=== PATIENT | male | born 1990 | race African-American/Black ===

== ENCOUNTER 2017-04-17 21:55 | Inpatient (IN) | payer BC, MEDICAID, OTHER ==
[~2017-04-17] VITALS: Ht 188 cm; Wt 71.0 kg
[~2017-04-17 21:55] MED LIST: RISP1 PO; RISP25P IM
[2017-04-17 23:01] VITALS: BP 124/75; PULSE 73; RESP 18; TEMP 98; O2SAT 100
--- NOTE | 2017-04-18 04:37 | PD ---
HPI Chief Complaint: Psychiatric Symptoms Time Seen by Provider: 04:25 Travel History International Travel<30 days: No Contact w/Intl Traveler<30days: No Traveled to known affect area: No History of Present Illness HPI 26-year-old black male presents emergency department under a [place] act by PD. Patient has a history of schizophrenia and has been noncompliant with his medications. The patient was found harassing people outside [facility]. When please contacted the patient he seemed disorganized and would run out to traffic. The patient is not making any sense. He is brought into the ER for evaluation. The patient here is acutely psychotic. The patient is medicated with Geodon 20 mg IM. PFSH Past Medical History Anxiety: Yes Depression: Yes Diminished Hearing: No Endocrine: No Gastrointestinal Disorders: No Genitourinary: No Headaches: No (See EMR) Implanted Vascular Access Dvce: No Musculoskeletal: No Neurologic: No Psychiatric: Yes (See EMR) Respiratory: No Tetanus Vaccination: Unknown Past Surgical History Surgical History: No Previous Surgery Social History Alcohol Use: No Tobacco Use: No Substance Use: No Allergies-Medications (Allergen,Severity, Reaction): Coded Allergies: No Known Allergies (Unverified Adverse Reaction, Unknown, 04/17/17) Reported Meds & Prescriptions Reported Meds & Active Scripts Active No Active Prescriptions or Reported Medications Review of Systems ROS Limitations: Psychotic Physical Exam Narrative GENERAL: Well-nourished, well-developed patient. SKIN: Warm and dry. HEAD: Normocephalic and atraumatic. EYES: No scleral icterus. No injection or drainage. ENT: No nasal drainage noted. Mucous membranes pink. Airway patent. NECK: Supple, trachea midline. Moves head freely without obvious discomfort. CARDIOVASCULAR: Regular rate and rhythm without murmurs, gallops, or rubs. RESPIRATORY: Breath sounds equal bilaterally. No accessory muscle use. GASTROINTESTINAL: Abdomen soft, non-tender, nondistended. EXTREMITIES: No cyanosis or edema. BACK: Nontender without obvious deformity. No CVA tenderness. NEURO: Patient is alert and oriented to person. no sensorimotor deficits. Nonfocal. Normal speech. PSYCH: Patient is acutely psychotic. He is not making any sense. Data Data Last Documented VS Vital Signs Date Time Temp Pulse Resp B/P (MAP) Pulse Ox O2 Delivery O2 Flow Rate FiO2 04/17/17 23:01 98.0 73 18 124/75 (91) 100 Orders Orders Complete Blood Count With Diff (04/17/17 23:13) Psych Screen (04/17/17 23:13) Thyroid Stimulating Hormone (04/18/17 04:31) Drug Screen, Random Urine (04/18/17 04:31) Alcohol (Ethanol) (04/18/17 04:31) Ziprasidone Inj (Geodon Inj) (04/18/17 04:45) Comprehensive Metabolic Panel (04/18/17 04:31) Labs Laboratory Tests Test 04/18/17 04:25 04/18/17 04:45 White Blood Count 11.4 TH/MM3 Red Blood Count 4.74 MIL/MM3 Hemoglobin 14.3 GM/DL Hematocrit 42.4 % Mean Corpuscular Volume 89.4 FL Mean Corpuscular Hemoglobin 30.2 PG Mean Corpuscular Hemoglobin Concent 33.8 % Red Cell Distribution Width 12.8 % Platelet Count 208 TH/MM3 Mean Platelet Volume 9.0 FL Neutrophils (%) (Auto) 60.2 % Lymphocytes (%) (Auto) 30.8 % Monocytes (%) (Auto) 7.1 % Eosinophils (%) (Auto) 1.2 % Basophils (%) (Auto) 0.7 % Neutrophils # (Auto) 6.8 TH/MM3 Lymphocytes # (Auto) 3.5 TH/MM3 Monocytes # (Auto) 0.8 TH/MM3 Eosinophils # (Auto) 0.1 TH/MM3 Basophils # (Auto) 0.1 TH/MM3 CBC Comment DIFF FINAL Differential Comment Blood Urea Nitrogen 13 MG/DL Creatinine 0.97 MG/DL Random Glucose 83 MG/DL Total Protein 8.4 GM/DL Albumin 4.5 GM/DL Calcium Level 8.9 MG/DL Alkaline Phosphatase 59 U/L Aspartate Amino Transf (AST/SGOT) 20 U/L Alanine Aminotransferase (ALT/SGPT) 45 U/L Total Bilirubin 0.4 MG/DL Sodium Level 139 MEQ/L Potassium Level 3.3 MEQ/L Chloride Level 104 MEQ/L Carbon Dioxide Level 28.0 MEQ/L Anion Gap 7 MEQ/L Estimat Glomerular Filtration Rate 112 ML/MIN Thyroid Stimulating Hormone 3rd Gen 1.380 uIU/ML Ethyl Alcohol Level LESS THAN 3 MG/DL Urine Opiates Screen NEG Urine Barbiturates Screen NEG Urine Amphetamines Screen NEG Urine Benzodiazepines Screen NEG Urine Cocaine Screen NEG Urine Cannabinoids Screen POS MDM Medical Decision Making Medical Screen Exam Complete: Yes Emergency Medical Condition: Yes Medical Record Reviewed: Yes Interpretation(s) Laboratory Tests Test 04/18/17 04:25 04/18/17 04:45 White Blood Count 11.4 TH/MM3 Red Blood Count 4.74 MIL/MM3 Hemoglobin 14.3 GM/DL Hematocrit 42.4 % Mean Corpuscular Volume 89.4 FL Mean Corpuscular Hemoglobin 30.2 PG Mean Corpuscular Hemoglobin Concent 33.8 % Red Cell Distribution Width 12.8 % Platelet Count 208 TH/MM3 Mean Platelet Volume 9.0 FL Neutrophils (%) (Auto) 60.2 % Lymphocytes (%) (Auto) 30.8 % Monocytes (%) (Auto) 7.1 % Eosinophils (%) (Auto) 1.2 % Basophils (%) (Auto) 0.7 % Neutrophils # (Auto) 6.8 TH/MM3 Lymphocytes # (Auto) 3.5 TH/MM3 Monocytes # (Auto) 0.8 TH/MM3 Eosinophils # (Auto) 0.1 TH/MM3 Basophils # (Auto) 0.1 TH/MM3 CBC Comment DIFF FINAL Differential Comment Blood Urea Nitrogen 13 MG/DL Creatinine 0.97 MG/DL Random Glucose 83 MG/DL Total Protein 8.4 GM/DL Albumin 4.5 GM/DL Calcium Level 8.9 MG/DL Alkaline Phosphatase 59 U/L Aspartate Amino Transf (AST/SGOT) 20 U/L Alanine Aminotransferase (ALT/SGPT) 45 U/L Total Bilirubin 0.4 MG/DL Sodium Level 139 MEQ/L Potassium Level 3.3 MEQ/L Chloride Level 104 MEQ/L Carbon Dioxide Level 28.0 MEQ/L Anion Gap 7 MEQ/L Estimat Glomerular Filtration Rate 112 ML/MIN Thyroid Stimulating Hormone 3rd Gen 1.380 uIU/ML Ethyl Alcohol Level LESS THAN 3 MG/DL Urine Opiates Screen NEG Urine Barbiturates Screen NEG Urine Amphetamines Screen NEG Urine Benzodiazepines Screen NEG Urine Cocaine Screen NEG Urine Cannabinoids Screen POS Differential Diagnosis MDM: High Differential diagnoses: Schizophrenia, schizoaffective disorder, bipolar, anxiety, depression, adjustment reaction, mood disorder NOS, ODD, depressive disorder NOS, dementia, dementia with agitation, psychosis NOS, substance induced mood disorder, DMDD, Asperger syndrome, infection,electrolyte abnormality, malingering. Narrative Course Patient is disorganized. He is treated with Geodon 20 mg IM. Mental health screening discussed with the patient. Psychiatric screen ordered. This is medical clearance for psychiatric admission, schizophrenia Diagnosis Primary Impression: Medical clearance for psychiatric admission Additional Impression: Schizophrenia Qualified Codes: F20.9 - Schizophrenia, unspecified Scripts No Active Prescriptions or Reported Meds Condition: Wero Vu Apr 18, 2017 04:37
[2017-04-18 04:41] LABS: AUTOMATED NEUTROPHIL # 6.8 TH/MM3 (1.8-7.7); BASOPHIL # 0.1 TH/MM3 (0-0.2); BASOPHIL % 0.7 % (0.0-2.0); EOSINOPHIL # 0.1 TH/MM3 (0-0.4); EOSINOPHIL % 1.2 % (0.0-4.0); HEMATOCRIT 42.4 % (39.0-51.0); HEMOGLOBIN 14.3 GM/DL (13.0-17.0); LYMPH % 30.8 % (9.0-44.0); LYMPHOCYTE # 3.5 TH/MM3 (1.0-4.8); MEAN CELL VOLUME 89.4 FL (80.0-100.0); MEAN CORPUSCULAR HEMOGLOBIN 30.2 PG (27.0-34.0); MEAN CORPUSCULAR HGB CONC 33.8 % (32.0-36.0); MONO % 7.1 % (0.0-8.0); MONOCYTE # 0.8 TH/MM3 (0-0.9); NEUT % 60.2 % (16.0-70.0); PLATELET COUNT 208 TH/MM3 (150-450); RED BLOOD COUNT 4.74 MIL/MM3 (4.50-5.90); RED CELL DISTRIBUTION WIDTH 12.8 % (11.6-17.2); WHITE BLOOD COUNT 11.4 TH/MM3 (4.0-11.0)
[2017-04-18] MEDS ORDERED: ZIPRASIDONE MESYLATE 20 MG VIAL IM ONE (04:45)
[2017-04-18 04:55] LABS: ALBUMIN 4.5 GM/DL (3.4-5.0); ALT (GPT) 45 U/L (12-78); AST (GOT) 20 U/L (15-37); BLOOD UREA NITROGEN 13 MG/DL (7-18); CALCIUM 8.9 MG/DL (8.5-10.1); CHLORIDE 104 MEQ/L (98-107); CREATININE 0.97 MG/DL (0.60-1.30); GLOMERULAR FILTRATION RATE 112 ML/MIN (>89); GLUCOSE,RANDOM 83 MG/DL (74-106); SODIUM (NA) 139 MEQ/L (136-145)
[2017-04-18 05:05] LABS: ALKALINE PHOSPHATASE 59 U/L (45-117); TOTAL BILIRUBIN ADULT 0.4 MG/DL (0.2-1.0); TOTAL PROTEIN 8.4 GM/DL (6.4-8.2)
[2017-04-18 08:07] VITALS: BP 117/71; PULSE 65; RESP 15; TEMP 97.6; O2SAT 100
[2017-04-18 12:30] VITALS: BP 110/69; PULSE 53; RESP 16; O2SAT 99
[2017-04-18 18:12] VITALS: BP 104/63; PULSE 83; RESP 18; O2SAT 100
[2017-04-18 20:45] VITALS: BP 111/69; PULSE 65; RESP 18; TEMP 97; O2SAT 100
[2017-04-18] MEDS ORDERED: MAGNESIUM HYDROXIDE SUSP 30 ML CUP PO PRN (23:45)
[2017-04-18] MEDS ORDERED: ALUMINUM/MAGNESIUM/SIMETH 30 ML CUP PO PRN (23:45)
[2017-04-18] MEDS ORDERED: diphenhydrAMINE HCL 50 MG/ML VIAL - HS PRN IM (23:45)
[2017-04-18] MEDS ORDERED: hydrOXYzine HCL 50 MG TAB PO PRN (23:45)
[2017-04-18] MEDS ORDERED: diphenhydrAMINE HCL 50 MG CAP - HS PRN PO (23:45)
[2017-04-18] MEDS ORDERED: ACETAMINOPHEN 325 MG TAB PO PRN (23:45)
[2017-04-19 05:58] VITALS: BP 123/59; PULSE 80; RESP 18; TEMP 98.7; O2SAT 99
[2017-04-19] MEDS ORDERED: NICOTINE 21 MG/24 HR PATCH T-DERMAL SCH (09:00)
--- NOTE | 2017-04-19 11:43 | HHI.HP ---
Provisional Diagnosis Admission Date Apr 18, 2017 at 20:15 [place] I. 1. Schizophrenia, disorganized type, acute exacerbation 2. Cannabis abuse [place] II. Deferred Certification of Person's Competence To Provide Express and Informed Consent I have personally examined Dannie Baker , a person being served at [facility] on, Apr 19, 2017 11:43. Express and informed consent means consent voluntarily given in writing, by a competent person, after sufficient explanation and disclosure of the subject matter involved to enable the person to make a knowing and willful decision without any element of force, fraud, deceit, duress, or other form of constraint or coercion. This person is 18 years of age or older, is not now known to be incompetent to consent to treatment with a guardian advocate, and does not have a health care surrogate or proxy currently making medical treatment decisions. I have found this person to be one of the following: [] Competent to provide express and informed consent, as defined above, for voluntary admission to this facility and is competent to provide express and informed consent for treatment. He/she has the consistent capacity to make well reasoned, willful, and knowing decisions concerning his or her medical or mental health treatment. The person fully and consistently understands the purpose of the admission for examination/placement and is fully capable of personally exercising all rights [place] [X] Incompetent to provide express and informed consent to voluntary admission, and this is incompetent to provide express and informed consent to treatment. The person must be transferred to involuntary status and a petition for a guardian advocate filed with the Circuit Court. [] Refusing to provide express and informed consent to voluntary admission but is competent to provide express and informed consent for treatment. The person must be discharged or transferred to involuntary status. Form shall be completed within 24 hours of a person's arrival at the receiving facility and filed in the clinical record of each person: 1. Admitted on a voluntary basis 2. Permitted to provide express and informed consent to his/her own treatment 3. Allowed to transfer from involuntary to voluntary status 4. Prior to permitting a person to consent to his or her own treatment after having been previously found incompetent to consent to treatment. History of Present Illness Capacity: Lacks Capacity Psych Chief Complaint: Psychosis HPI Mr. Baker is a 26-year-old male with a history of schizophrenia who resents under a [place] act by law enforcement alleging that he was harassing passersby outside of a bank. Reviewing the electronic medical record, I note the patient was admitted psychiatrically here at [facility] back in 2016 under my care and was started on Risperdal Consta at that time. Patient seen and examined with nurse. Chart reviewed. Case discussed with nursing staff. On my examination today, the patient presents as disheveled, hypoverbal, flat with poor eye contact. He minimizes the circumstances of his presentation here and says "they brought me up here for smoking a joint." He denies interacting with passersby and denies the allegation and the [place] act that he was running into traffic. He denies any suicidal or homicidal ideation but seems unreliable to contract for safety. He denies any audiovisual hallucination but is observed muttering to himself. Mood is "alright" and I can elicit no depressive or hypomanic/manic symptoms. He seems somewhat guarded but denies any ideas of reference, thought insertion or withdrawal or grandiosity. He does not believe that he has any sort of psychiatric issue and is not interested in any psychotropic medication. He apparently has been nonadherent with psychotropic medications for some time. Remainder of the psychiatric ROS is negative. No physical complaints. Past psychiatric history: The patient has a history of schizophrenia. He is not currently under the care of an outpatient psychiatrist. He denies any psychiatric admissions since he was here at [facility]. He denies any history of suicide attempts. Denies any history of violent behavior. Family history: The patient denies any family history of serious mental illness or suicide. Chemical dependency history: The patient admits to occasional use of cannabis. He denies any other substance use. Denies any alcohol use or synthetic drug use. Social history: The patient lives with his mother. He has an 11th grade education. He collects [employer]. Mother may be his payee, it is not clear. He is single. He has a daughter who resides with daughter's mother. He denies any legal troubles. He denies any history. He denies any access to guns or firearms. He denies any pentecostal or spiritual beliefs. He denies any history of abuse or neglect. With the patient's permission, I endeavor to obtain collateral information from his mother at number provided by patient [phone]. This number keeps wringing and no one picks up. Patient notes that the number listed in the EMR is out of date. Review of Systems ROS Limitations: Psychotic, Poor Historian Except as stated in HPI: all other systems reviewed are Neg Past Family Social History Coded Allergies: No Known Allergies (Unverified Allergy, Unknown, 04/18/17) Past Medical History Patient denies any PMH. No Active Prescriptions or Reported Meds Current Medications Medications (Trade) Dose Ordered Sig/Gee Route Start Time Stop Time Status Last Admin (Atarax) 50 mg Q6H PRN PO 04/18/17 23:45 (Benadryl) 50 mg HS PRN PO 04/18/17 23:45 (Benadryl Inj) 50 mg HS PRN IM 04/18/17 23:45 (Tylenol) 650 mg Q4H PRN PO 04/18/17 23:45 (Milk Of Magnesia Liq) 30 ml DAILY PRN PO 04/18/17 23:45 (Mag-Al Plus Susp Liq) 30 ml Q6H PRN PO 04/18/17 23:45 (Habitrol 21 Mg Patch.24 Hr) 1 patch DAILY T-DERMAL 04/19/17 09:00 Miscellaneous Information 1 HS T-DERMAL 04/19/17 21:00 Patient's Strengths (min. 2) In a monitored setting. Verbally fluent. Physical Exam Physical examination completed by ED provider. On my examination today, the patient appears to be in no acute physical distress. No motor abnormalities noted. Labs and vitals reviewed: Vital Signs Vital Signs Date Time Temp Pulse Resp B/P (MAP) Pulse Ox O2 Delivery O2 Flow Rate FiO2 04/19/17 05:58 98.7 80 18 123/59 (80) 99 04/18/17 18:12 Room Air Lab Results Item Value Date Time White Blood Count 11.4 TH/MM3 H 04/18/17424 Hemoglobin 14.3 GM/DL 04/18/17424 Platelet Count 208 TH/MM3 04/18/17 042 Sodium Level 139 MEQ/L 04/18/17 042 Potassium Level 3.3 MEQ/L L 04/18/17 042 Chloride Level 104 MEQ/L 04/18/17 042 Carbon Dioxide Level 28.0 MEQ/L 04/18/17424 Blood Urea Nitrogen 13 MG/DL 04/18/17424 Creatinine 0.97 MG/DL 04/18/17424 Estimat Glomerular Filtration Rate 112 ML/MIN 04/18/17424 Aspartate Amino Transf (AST/SGOT) 20 U/L 04/18/17424 Alanine Aminotransferase (ALT/SGPT) 45 U/L 04/18/17424 Alkaline Phosphatase 59 U/L 04/18/17424 Thyroid Stimulating Hormone 3rd Gen 1.380 uIU/ML 04/18/17424 Urine Cannabinoids Screen POS H 04/18/17444 Ethyl Alcohol Level LESS THAN 3 MG/DL 04/18/17424 Mild leukocytosis noted without any signs or symptoms of infection. Hypokalemia noted, and I have ordered potassium repletion. Mental Status Examination Appearance: Disheveled Consciousness: Alert Orientation: Person, Place (at least) Motor Activity: Normal gait Speech: Hesitant, Slow Language: Adequate Fund of Knowledge: Adequate Attention and Concentration: Easily Distracted Memory: Unremarkable Mood: Other ("all right") Affect: Flat Thought Process & Associations: Other (slowed) Thought Content: Other (some poverty of thought) Hallucination Type: Auditory (muttering to himself) Delusion Type: Other (somewhat guarded) Suicidal Ideation: No (unreliable to contract for safety) Suicidal Plan: No Suicidal Intention: No Homicidal Ideation: No Homicidal Plan: No Homicidal Intention: No Insight: Poor Judgment: Poor Assessment & Plan Problem List: (1) Schizophrenia ICD Codes: F20.9 - Schizophrenia, unspecified Status: Acute (2) Cannabis abuse ICD Codes: F12.10 - Cannabis abuse, uncomplicated Assessment & Plan 26-year-old male with psychiatric history as detailed above presently admitted to the inpatient psychiatric unit under a [place] act. On my examination today, the patient presents as guarded, internally preoccupied and disheveled. He reports that he has been nonadherent with psychotropic medications. I am concerned that he is experiencing an exacerbation of disorganized schizophrenia and may have a significant self-care deficit in a less restrictive setting. I will plan to admit patient to the inpatient psychiatric unit for safety, observation and stabilization. Admit inpatient. Involuntary status. I have completed first opinion. Consult for second opinion. Request healthcare surrogate and guardian advocate. I was unable to reach the patient's mother and have no other healthcare surrogate available at this time and so psychotropic medications are on hold. Once we have made contact with patient's mother or other suitable healthcare surrogate, plan to start patient back on an antipsychotic, probably one with an available long-acting injectable. Check EKG for QTC. Replete potassium. Check a BMP and magnesium in the morning. Check a CBC in the morning to follow-up leukocytosis. Vitals every shift. Counselor to see. Collateral information. Disposition planning. Estimated length of stay: 5-7 days. Discharge Planning Pending psychiatric stabilization Request HC Surrog/Guard Advoc?: Yes Problem Qualifiers (1) Schizophrenia: Qualified Codes: F20.1 - Disorganized schizophrenia Yung Pederson MD Apr 19, 2017 11:43
[2017-04-19] MEDS ORDERED: POTASSIUM CHLORIDE 10 MEQ CONTROLLED RELEASE TAB PO ONE (12:00)
[2017-04-19] MEDS ORDERED: NICOTINE 21 MG/24 HR PATCH T-DERMAL PRN (12:15)
[2017-04-19 18:01] VITALS: BP 107/60; PULSE 72; RESP 18; TEMP 97; O2SAT 98
[2017-04-19] MEDS: REMOVE OLD NICOTINE PATCH T-DERMAL SCH (21:00)
[2017-04-20 05:54] VITALS: BP 114/69; PULSE 80; RESP 17; TEMP 98.6; O2SAT 99
[2017-04-20 08:28] LABS: AUTOMATED NEUTROPHIL # 4.3 TH/MM3 (1.8-7.7); BASOPHIL # 0.1 TH/MM3 (0-0.2); BASOPHIL % 0.9 % (0.0-2.0); EOSINOPHIL # 0.2 TH/MM3 (0-0.4); EOSINOPHIL % 2.1 % (0.0-4.0); HEMATOCRIT 43.8 % (39.0-51.0); HEMOGLOBIN 14.8 GM/DL (13.0-17.0); LYMPH % 33.1 % (9.0-44.0); LYMPHOCYTE # 2.6 TH/MM3 (1.0-4.8); MEAN CELL VOLUME 88.7 FL (80.0-100.0); MEAN CORPUSCULAR HEMOGLOBIN 29.9 PG (27.0-34.0); MEAN CORPUSCULAR HGB CONC 33.8 % (32.0-36.0); MEAN PLATELET VOLUME 9.1 FL (7.0-11.0); MONO % 8.1 % (0.0-8.0); MONOCYTE # 0.6 TH/MM3 (0-0.9); NEUT % 55.8 % (16.0-70.0); PLATELET COUNT 205 TH/MM3 (150-450); RED BLOOD COUNT 4.94 MIL/MM3 (4.50-5.90); RED CELL DISTRIBUTION WIDTH 12.8 % (11.6-17.2); WHITE BLOOD COUNT 7.7 TH/MM3 (4.0-11.0)
[2017-04-20 08:54] LABS: BICARBONATE 27.9 MEQ/L (21.0-32.0); CALCIUM 9.8 MG/DL (8.5-10.1); CREATININE 1.06 MG/DL (0.60-1.30); MAGNESIUM 1.8 MG/DL (1.5-2.5)
--- NOTE | 2017-04-20 09:11 | HHI.PYPN ---
Subjective Chief Complaint: Psychosis Remarks Patient seen and examined. Chart reviewed. Case discussed with nursing staff. Case discussed in treatment team. No behavioral issues overnight per nursing staff although the patient keeps to himself. On my examination today, the patient exhibits poor eye contact and remains fairly disheveled. He is wringing his hands and appears somewhat anxious. He denies any SI or HI. Denies any AVH but appears internally stimulated. He says that he is enjoying the food on the inpatient unit. No physical complaints. Does not think that he needs any psychotropic medications. I once again tried to reach patient's mother at the number in the EMR and at the number provided by the patient himself. Both of these numbers kept ringing with no opportunity to leave a voicemail. Patient reports that there is no one else who we could call to act as healthcare surrogate or for collateral information. Review of Systems ROS Limitations: Psychotic, Poor Historian Except as stated in HPI: all other systems reviewed are Neg Mental Status Examination Appearance: Disheveled Consciousness: Alert Orientation: Person, Place Motor Activity: Normal gait Speech: Hesitant, Slow Language: Adequate Fund of Knowledge: Adequate Attention and Concentration: Adequate Memory: Unremarkable Mood: Other (calm) Affect: Flat Thought Process & Associations: Other (remains a little slowed) Thought Content: Other (some poverty of thought) Hallucination Type: Other (somewhat internally stimulated) Delusion Type: Other (remains a little guarded) Suicidal Ideation: No Suicidal Plan: No Suicidal Intention: No Homicidal Ideation: No Homicidal Plan: No Homicidal Intention: No Insight: Poor Judgment: Poor Results Labs Test 04/20/17 07:35 White Blood Count 7.7 TH/MM3 Red Blood Count 4.94 MIL/MM3 Hemoglobin 14.8 GM/DL Hematocrit 43.8 % Mean Corpuscular Volume 88.7 FL Mean Corpuscular Hemoglobin 29.9 PG Mean Corpuscular Hemoglobin Concent 33.8 % Red Cell Distribution Width 12.8 % Platelet Count 205 TH/MM3 Mean Platelet Volume 9.1 FL Neutrophils (%) (Auto) 55.8 % Lymphocytes (%) (Auto) 33.1 % Monocytes (%) (Auto) 8.1 % Eosinophils (%) (Auto) 2.1 % Basophils (%) (Auto) 0.9 % Neutrophils # (Auto) 4.3 TH/MM3 Lymphocytes # (Auto) 2.6 TH/MM3 Monocytes # (Auto) 0.6 TH/MM3 Eosinophils # (Auto) 0.2 TH/MM3 Basophils # (Auto) 0.1 TH/MM3 CBC Comment DIFF FINAL Differential Comment Blood Urea Nitrogen 12 MG/DL Creatinine 1.06 MG/DL Random Glucose 78 MG/DL Calcium Level 9.8 MG/DL Magnesium Level 1.8 MG/DL Sodium Level 139 MEQ/L Potassium Level 4.1 MEQ/L Chloride Level 103 MEQ/L Carbon Dioxide Level 27.9 MEQ/L Anion Gap 8 MEQ/L Estimat Glomerular Filtration Rate 101 ML/MIN Labs reviewed. Leukocytosis and hypokalemia resolved. Vitals/IOs Vital Signs Date Time Temp Pulse Resp B/P (MAP) Pulse Ox O2 Delivery O2 Flow Rate FiO2 04/20/17 05:54 98.6 80 17 114/69 (84) 99 04/18/17 18:12 Room Air Assessment & Plan Problem List: (1) Schizophrenia ICD Codes: F20.9 - Schizophrenia, unspecified Status: Acute (2) Cannabis abuse ICD Codes: F12.10 - Cannabis abuse, uncomplicated Assessment & Plan Psychotropic medications remain on hold for lack of consent. Patient would likely benefit from an antipsychotic medication. Continue to monitor on the inpatient unit. Continue other care as ordered. Justification for Cont. Inpt. Risk for decompensation in less restrictive environment. Discharge Planning To be determined Request HC Surrog/Guard Advoc?: Yes Problem Qualifiers (1) Schizophrenia: Qualified Codes: F20.1 - Disorganized schizophrenia Yung Pederson MD Apr 20, 2017 09:11
--- NOTE | 2017-04-20 10:54 | PD.PSY.CON ---
Provisional Diagnosis Admission Date Apr 18, 2017 at 20:15 Randolph I. 1. Schizophrenia, disorganized type, acute exacerbation 2. Cannabis abuse Randolph II. Deferred History of Present Illness Service Psychiatry Consult Requested By Dr. Pederson Reason for Consult Second opinion Primary Care Physician Unknown HPI Mr. Baker is a 26-year-old male with a history of schizophrenia who resents under a [place] act by law enforcement alleging that he was harassing passersby outside of a bank. Reviewing the electronic medical record, I note the patient was admitted psychiatrically here at [facility] back in 2016 under my care and was started on Risperdal Consta at that time.Patient seen and examined with nurse. Chart reviewed. Case discussed with nursing staff. On my examination today, the patient presents as disheveled, hypoverbal, flat with poor eye contact. He minimizes the circumstances of his presentation here and says "they brought me up here for smoking a joint." He denies interacting with passersby and denies the allegation and the [place] act that he was running into traffic. He denies any suicidal or homicidal ideation but seems unreliable to contract for safety. He denies any audiovisual hallucination but is observed muttering to himself. Mood is "alright" and I can elicit no depressive or hypomanic/manic symptoms. He seems somewhat guarded but denies any ideas of reference, thought insertion or withdrawal or grandiosity. He does not believe that he has any sort of psychiatric issue and is not interested in any psychotropic medication. He apparently has been nonadherent with psychotropic medications for some time. Remainder of the psychiatric ROS is negative. No physical complaints. The patient is a 26-year-old -[place] man, he is domiciled with his mother, single, employed in a [employer], with psychiatric history of schizophrenia, 1 previous psychiatric hospitalization here at [facility], no previous suicide attempts, no establish outpatient care, cannabis use disorder, no significant medical history,who presents under a [place] act by law enforcement alleging that he was harassing passersby outside of a bank. Patient was consulted to me for second opinion. On psychiatric evaluation patient is guarded, superficially cooperative, minimizing his recent actions that brought him to the hospital. Patient states that he does not have any mental illness, he says that he should be discharged from here. He denies suicidal or homicidal ideation, he denies visual and auditory hallucinations. However, the patient states that if he needs to take medication he will do it in order to be discharged as soon as possible. He denies the use of cocaine, heroin, amphetamines, alcohol. He reports daily use of marijuana Review of Systems Constitutional: DENIES: Diaphoretic episodes, Fatigue, Fever, Weight gain, Weight loss, Chills, Dizziness, Change in appetite, Night Sweats Endocrine: DENIES: Heat/cold intolerance, Polydipsia, Polyuria, Polyphagia Eyes: DENIES: Blurred vision, Diplopia, Eye inflammation, Eye pain, Vision loss , Photosensitivity, Double Vision Ears, nose, mouth, throat: DENIES: Tinnitus, Hearing loss, Vertigo, Nasal discharge, Oral lesions, Throat pain, Hoarseness, Ear Pain, Running Nose, Epistaxis, Sinus Pain, Toothache, Odynophagia Respiratory: DENIES: Apneas, Cough, Snoring, Wheezing, Hemoptysis, Sputum production, Shortness of breath Cardiovascular: DENIES: Chest pain, Palpitations, Syncope, Dyspnea on Exertion , PND, Lower Extremity Edema, Orthopnea, Claudication Gastrointestinal: DENIES: Abdominal pain, Black stools, Bloody stools, Constipation, Diarrhea, Nausea, Vomiting, Difficulty Swallowing, Anorexia Genitourinary: DENIES: Sexual dysfunction, Urinary frequency, Urinary incontinence, Urgency, Hematuria, Dysuria, Nocturia, Penile Discharge, Testicular Pain, Testicular Swelling Musculoskeletal: DENIES: Joint pain, Muscle aches, Stiffness, Joint Swelling, Back pain, Neck pain Integumentary: DENIES: Abnormal pigmentation, Nail changes, Pruritus, Rash Hematologic/lymphatic: DENIES: Bruising, Lymphadenopathy Immunologic/allergic: DENIES: Eczema, Urticaria Neurologic: DENIES: Abnormal gait, Headache, Localized weakness, Paresthesias, Seizures, Speech Problems, Tremor, Poor Balance Psychiatric: DENIES: Anxiety, Confusion, Mood changes, Depression, Hallucinations, Agitation, Suicidal Ideation, Homicidal Ideation, Delusions Past Family Social History Coded Allergies: No Known Allergies (Unverified Allergy, Unknown, 04/18/17) No Active Prescriptions or Reported Meds Current Medications Medications (Trade) Dose Ordered Sig/Gee Route Start Time Stop Time Status Last Admin (Atarax) 50 mg Q6H PRN PO 04/18/17 23:45 Future Hold (Benadryl) 50 mg HS PRN PO 04/18/17 23:45 (Benadryl Inj) 50 mg HS PRN IM 04/18/17 23:45 (Tylenol) 650 mg Q4H PRN PO 04/18/17 23:45 (Milk Of Magnesia Liq) 30 ml DAILY PRN PO 04/18/17 23:45 (Mag-Al Plus Susp Liq) 30 ml Q6H PRN PO 04/18/17 23:45 Miscellaneous Information 1 HS T-DERMAL 04/19/17 21:00 (Habitrol 21 Mg Patch.24 Hr) 1 patch DAILY PRN T-DERMAL 04/19/17 12:15 Patient's Strengths (min. 2) In a monitored setting. Verbally fluent. Physical Exam Vital Signs Vital Signs Date Time Temp Pulse Resp B/P (MAP) Pulse Ox O2 Delivery O2 Flow Rate FiO2 04/20/17 05:54 98.6 80 17 114/69 (84) 99 04/18/17 18:12 Room Air Lab Results Test 04/20/17 07:35 White Blood Count 7.7 TH/MM3 Red Blood Count 4.94 MIL/MM3 Hemoglobin 14.8 GM/DL Hematocrit 43.8 % Mean Corpuscular Volume 88.7 FL Mean Corpuscular Hemoglobin 29.9 PG Mean Corpuscular Hemoglobin Concent 33.8 % Red Cell Distribution Width 12.8 % Platelet Count 205 TH/MM3 Mean Platelet Volume 9.1 FL Neutrophils (%) (Auto) 55.8 % Lymphocytes (%) (Auto) 33.1 % Monocytes (%) (Auto) 8.1 % Eosinophils (%) (Auto) 2.1 % Basophils (%) (Auto) 0.9 % Neutrophils # (Auto) 4.3 TH/MM3 Lymphocytes # (Auto) 2.6 TH/MM3 Monocytes # (Auto) 0.6 TH/MM3 Eosinophils # (Auto) 0.2 TH/MM3 Basophils # (Auto) 0.1 TH/MM3 CBC Comment DIFF FINAL Differential Comment Blood Urea Nitrogen 12 MG/DL Creatinine 1.06 MG/DL Random Glucose 78 MG/DL Calcium Level 9.8 MG/DL Magnesium Level 1.8 MG/DL Sodium Level 139 MEQ/L Potassium Level 4.1 MEQ/L Chloride Level 103 MEQ/L Carbon Dioxide Level 27.9 MEQ/L Anion Gap 8 MEQ/L Estimat Glomerular Filtration Rate 101 ML/MIN Mental Status Examination Appearance: Disheveled Consciousness: Alert Orientation: Person, Place (at least) Motor Activity: Normal gait Speech: Hesitant, Slow Language: Adequate Fund of Knowledge: Adequate Attention and Concentration: Easily Distracted Memory: Unremarkable Mood: Other ("all right") Affect: Flat Thought Process & Associations: Other (slowed) Thought Content: Other (some poverty of thought) Hallucination Type: Auditory (muttering to himself) Delusion Type: Other (somewhat guarded) Suicidal Ideation: No (unreliable to contract for safety) Suicidal Plan: No Suicidal Intention: No Homicidal Ideation: No Homicidal Plan: No Homicidal Intention: No Insight: Poor Judgment: Poor Assessment & Plan Problem List: (1) Schizophrenia ICD Codes: F20.9 - Schizophrenia, unspecified Status: Acute (2) Cannabis abuse ICD Codes: F12.10 - Cannabis abuse, uncomplicated Assessment & Plan: I have seen and examined this patient, reviewed documentation, I agree and concur with Dr. Pederson's assessment and plan. Consult appreciated Assessment & Plan Estimated LOS: days Request HC Surrog/Guard Advoc?: Yes Problem Qualifiers (1) Schizophrenia: Qualified Codes: F20.1 - Disorganized schizophrenia Yoni Magana MD Apr 20, 2017 10:54
--- NOTE | 2017-04-20 11:12 | EKG ---
Date Performed: 04/19/2017 Time Performed: 13:33:51 PTAGE: 26 years EKG: Sinus rhythm INCOMPLETE RIGHT BUNDLE BRANCH BLOCK BORDERLINE ECG NO PREVIOUS TRACING DOCTOR: Saad Campa Interpretating Date/Time 04/20/2017 11:08:09
[2017-04-20 18:13] VITALS: BP 119/56; PULSE 66; RESP 18; TEMP 98.5; O2SAT 98
[2017-04-20] MEDS: REMOVE OLD NICOTINE PATCH T-DERMAL SCH (20:33)
[2017-04-21 06:13] VITALS: BP 108/57; PULSE 80; RESP 17; TEMP 98.3; O2SAT 100
--- NOTE | 2017-04-21 15:44 | HHI.PYPN ---
Subjective Chief Complaint: Psychosis Remarks Patient was seen and case discussed with nursing. Patient is guarded, defensive , disheveled, not cooperative. After the first question. Patient refuses the interview and starts taunting me from a distance. No outbursts Mental Status Examination Appearance: Disheveled Consciousness: Alert Orientation: Person, Place Motor Activity: Normal gait Speech: Hesitant, Slow Language: Adequate Fund of Knowledge: Adequate Attention and Concentration: Adequate Memory: Unremarkable Mood: Angry, Oppositional, Other (calm) Affect: Blunt Thought Process & Associations: Other (remains a little slowed) Thought Content: Other (some poverty of thought) Hallucination Type: Other (somewhat internally stimulated) Delusion Type: Other (remains a little guarded) Suicidal Ideation: No Suicidal Plan: No Suicidal Intention: No Homicidal Ideation: No Homicidal Plan: No Homicidal Intention: No Insight: Poor Judgment: Poor Results Vitals/IOs Vital Signs Date Time Temp Pulse Resp B/P (MAP) Pulse Ox O2 Delivery O2 Flow Rate FiO2 04/21/17 06:13 98.3 80 17 108/57 (74) 100 04/18/17 18:12 Room Air Assessment & Plan Problem List: (1) Schizophrenia ICD Codes: F20.9 - Schizophrenia, unspecified Status: Acute (2) Cannabis abuse ICD Codes: F12.10 - Cannabis abuse, uncomplicated Assessment & Plan Continue current treatment plan Justification for Cont. Inpt. Patient will decompensate in a less restrictive setting Request HC Surrog/Guard Advoc?: Yes Problem Qualifiers (1) Schizophrenia: Qualified Codes: F20.1 - Disorganized schizophrenia Sascha Enrique DO Apr 21, 2017 15:44
[2017-04-21 17:32] VITALS: BP 113/67; PULSE 58; RESP 17; TEMP 97.4; O2SAT 99
[2017-04-21] MEDS: REMOVE OLD NICOTINE PATCH T-DERMAL SCH (20:01)
[2017-04-22 06:03] VITALS: BP 114/65; PULSE 79; RESP 17; TEMP 99.2; O2SAT 100
--- NOTE | 2017-04-22 11:33 | HHI.PYPN ---
Subjective Chief Complaint: Psychosis Remarks Patient was seen and case discussed with nursing. Patient remains oppositional with the interview. Per nursing he would speak to the nurse for couple minutes. However after the first question he starts getting annoyed and using street slang refusing to answer anymore questions. Not on any medications Mental Status Examination Appearance: Disheveled Consciousness: Alert Orientation: Person, Place Motor Activity: Normal gait Speech: Hesitant, Slow Language: Adequate Fund of Knowledge: Adequate Attention and Concentration: Adequate Memory: Unremarkable Mood: Angry, Oppositional, Other (calm) Affect: Blunt Thought Process & Associations: Other (remains a little slowed) Thought Content: Other (some poverty of thought) Hallucination Type: Other (somewhat internally stimulated) Delusion Type: Other (remains a little guarded) Suicidal Ideation: No Suicidal Plan: No Suicidal Intention: No Homicidal Ideation: No Homicidal Plan: No Homicidal Intention: No Insight: Poor Judgment: Poor Results Vitals/IOs Vital Signs Date Time Temp Pulse Resp B/P (MAP) Pulse Ox O2 Delivery O2 Flow Rate FiO2 04/22/17 06:03 99.2 79 17 114/65 (81) 100 04/18/17 18:12 Room Air Assessment & Plan Problem List: (1) Schizophrenia ICD Codes: F20.9 - Schizophrenia, unspecified Status: Acute (2) Cannabis abuse ICD Codes: F12.10 - Cannabis abuse, uncomplicated Assessment & Plan Continue current treatment plan Justification for Cont. Inpt. Patient will decompensate in a less restrictive setting Request HC Surrog/Guard Advoc?: Yes Problem Qualifiers (1) Schizophrenia: Qualified Codes: F20.1 - Disorganized schizophrenia Sascha Enrique DO Apr 22, 2017 11:33
[2017-04-22 16:58] VITALS: BP 113/64; PULSE 62; RESP 18; TEMP 97.1; O2SAT 100
[2017-04-22] MEDS: REMOVE OLD NICOTINE PATCH T-DERMAL SCH (21:00)
[2017-04-23 06:03] VITALS: BP 116/59; PULSE 73; RESP 18; TEMP 98.7
--- NOTE | 2017-04-23 10:44 | HHI.PYPN ---
Subjective Chief Complaint: Psychosis Remarks Patient seen and examined. Chart reviewed. Case discussed with nursing staff. On my examination today, patient is disheveled. Eye contact is poor. The patient appears internally preoccupied. He admits to feelings of paranoia noting "I ain't been feeling good" about people being out to get him. He is hypoverbal and some thought blocking is noted. No acute physical complaints I was able to reach patient's mother, Ms. Xiong today. She is willing to act as HCS. She feels he has done better when medicated in the past and provides consent for Risperdal. Review of Systems ROS Limitations: Psychotic, Poor Historian Except as stated in HPI: all other systems reviewed are Neg Mental Status Examination Appearance: Disheveled Consciousness: Alert Orientation: Person, Place Motor Activity: Normal gait, Other (no motor abnormalities noted) Speech: Hesitant, Slow Language: Adequate Fund of Knowledge: Adequate Attention and Concentration: Adequate Memory: Unremarkable Mood: Other (calm) Affect: Flat Thought Process & Associations: Circumstantial Thought Content: Thought blocking, Other (some poverty of thought) Hallucination Type: Other (remains internally preoccupied) Delusion Type: Paranoid Suicidal Ideation: No Suicidal Plan: No Suicidal Intention: No Homicidal Ideation: No Homicidal Plan: No Homicidal Intention: No Insight: Poor Judgment: Poor Results Labs labs reviewed. Vitals/IOs Vital Signs Date Time Temp Pulse Resp B/P (MAP) Pulse Ox O2 Delivery O2 Flow Rate FiO2 04/23/17 06:03 98.7 73 18 116/59 (78) 04/22/17 16:58 100 Assessment & Plan Problem List: (1) Schizophrenia ICD Codes: F20.9 - Schizophrenia, unspecified Status: Acute (2) Cannabis abuse ICD Codes: F12.10 - Cannabis abuse, uncomplicated Assessment & Plan Add Risperdal 1mg BID with plans to titrate to effect. To consider CARROLL antipsychotic. Continue to monitor on inpatient unit. Continue other medications and care as ordered. Justification for Cont. Inpt. Medication changes. Impairment in reality construction. High risk for decompensation in less restrictive environment. Discharge Planning Pending psychiatric stabilization. Request HC Surrog/Guard Advoc?: Yes Problem Qualifiers (1) Schizophrenia: Qualified Codes: F20.1 - Disorganized schizophrenia Yung Pederson MD Apr 23, 2017 10:44
[2017-04-23] MEDS ORDERED: LORazepam 2 MG/ML VIAL IM PRN (11:00)
[2017-04-23] MEDS ORDERED: LORazepam 1 MG TAB PO PRN (11:00)
[2017-04-23] MEDS: risperiDONE ODT 1 MG TAB PO SCH ×2 (12:00→20:32)
[2017-04-23 15:06] VITALS: BP 120/60; PULSE 90; RESP 18; TEMP 99; O2SAT 100
[2017-04-23] MEDS: REMOVE OLD NICOTINE PATCH T-DERMAL SCH (19:48)
[2017-04-24 05:52] VITALS: BP 112/61; PULSE 98; RESP 18; TEMP 98.9; O2SAT 99
[2017-04-24] MEDS: risperiDONE ODT 1 MG TAB PO SCH ×2 (08:18→21:00)
--- NOTE | 2017-04-24 10:47 | HHI.PYPN ---
Subjective Chief Complaint: Psychosis Remarks Patient seen and examined with nurse. Chart reviewed. Case discussed with nursing staff. Case discussed in treatment team. On my exam, patient remains somewhat hyperverbal, apathetic and affectively flat. Denies AVH. Denies SI or HI. Denies side effects from medications. No acute physical complaints. Review of Systems ROS Limitations: Psychotic, Poor Historian Except as stated in HPI: all other systems reviewed are Neg Mental Status Examination Appearance: Disheveled (grooming improved somewhat) Consciousness: Alert Orientation: Person, Place Motor Activity: Normal gait, Other (no EPS) Speech: Slow Language: Adequate Fund of Knowledge: Adequate Attention and Concentration: Adequate Memory: Unremarkable Mood: Other (no mood issues) Affect: Flat Thought Process & Associations: Circumstantial Thought Content: Thought blocking, Other (some poverty of thought) Hallucination Type: Other (denies AVH) Delusion Type: None Suicidal Ideation: No Suicidal Plan: No Suicidal Intention: No Homicidal Ideation: No Homicidal Plan: No Homicidal Intention: No Insight: Poor Judgment: Poor Results Labs Labs reviewed. No new labs. Vitals/IOs Vital Signs Date Time Temp Pulse Resp B/P (MAP) Pulse Ox O2 Delivery O2 Flow Rate FiO2 04/24/17 05:52 98.9 98 18 112/61 (78) 99 Assessment & Plan Problem List: (1) Schizophrenia ICD Codes: F20.9 - Schizophrenia, unspecified Status: Acute (2) Cannabis abuse ICD Codes: F12.10 - Cannabis abuse, uncomplicated Assessment & Plan Titrate Risperdal to 2 mg twice daily to target psychotic symptoms. Patient does seem to have fairly prominent negative symptoms. Transfer to lower acuity unit. Continue other medications and care as ordered. Justification for Cont. Inpt. Med changes. Risk for decompensation in less restrictive environment. Discharge Planning Pending psychiatric stabilization. Probable discharge later this week. Request HC Surrog/Guard Advoc?: Yes Problem Qualifiers (1) Schizophrenia: Qualified Codes: F20.1 - Disorganized schizophrenia Yung Pederson MD Apr 24, 2017 10:47
[2017-04-24 18:34] VITALS: BP 102/57; PULSE 56; RESP 18; TEMP 97.2; O2SAT 98
[2017-04-24] MEDS: REMOVE OLD NICOTINE PATCH T-DERMAL SCH (21:00)
[2017-04-25 05:50] VITALS: BP 102/57; PULSE 92; RESP 18; TEMP 97.5; O2SAT 99
[2017-04-25] MEDS: risperiDONE ODT 1 MG TAB PO SCH (09:00)
[2017-04-25] MEDS ORDERED: RISP2TAB2 PO ×2 (10:45→12:13)
--- NOTE | 2017-04-25 10:45 | HHI.DS ---
Psychiatry Discharge Summary Inpatient Psychiatric care?: Yes Advance Directive: No Reason Not Provided: NONE Mental Health AdvanceDirective: No Health Care Proxy: No Admission Admission Date Apr 18, 2017 at 20:15 Admission Diagnosis: (1) Schizophrenia ICD Code: F20.9 - Schizophrenia, unspecified (2) Cannabis abuse ICD Code: F12.10 - Cannabis abuse, uncomplicated Brief History Mr. Baker is a 26-year-old male with a history of schizophrenia who resents under a [place] act by law enforcement alleging that he was harassing passersby outside of a bank. Reviewing the electronic medical record, I note the patient was admitted psychiatrically here at [facility] back in 2016 under my care and was started on Risperdal Consta at that time.Patient seen and examined with nurse. Chart reviewed. Case discussed with nursing staff. On my examination today, the patient presents as disheveled, hypoverbal, flat with poor eye contact. He minimizes the circumstances of his presentation here and says "they brought me up here for smoking a joint." He denies interacting with passersby and denies the allegation and the [place] act that he was running into traffic. He denies any suicidal or homicidal ideation but seems unreliable to contract for safety. He denies any audiovisual hallucination but is observed muttering to himself. Mood is "alright" and I can elicit no depressive or hypomanic/manic symptoms. He seems somewhat guarded but denies any ideas of reference, thought insertion or withdrawal or grandiosity. He does not believe that he has any sort of psychiatric issue and is not interested in any psychotropic medication. He apparently has been nonadherent with psychotropic medications for some time. Remainder of the psychiatric ROS is negative. No physical complaints. The patient is a 26-year-old -Citizen [place] man, he is domiciled with his mother, single, employed in a [employer] company, with psychiatric history of schizophrenia, 1 previous psychiatric hospitalization here at [facility], no previous suicide attempts, no establish outpatient care, cannabis use disorder, no significant medical history,who presents under a [place] act by law enforcement alleging that he was harassing passersby outside of a bank. Patient was consulted to me for second opinion. On psychiatric evaluation patient is guarded, superficially cooperative, minimizing his recent actions that brought him to the hospital. Patient states that he does not have any mental illness, he says that he should be discharged from here. He denies suicidal or homicidal ideation, he denies visual and auditory hallucinations. However, the patient states that if he needs to take medication he will do it in order to be discharged as soon as possible. He denies the use of cocaine, heroin, amphetamines, alcohol. He reports daily use of marijuana Tobacco Use In Past 30 Days: No Tobacco Past 30 Days Alcohol Use: Never Hospital Course Patient was admitted to a locked, inpatient psychiatric unit. Appropriate precautions were in place throughout patient's hospital stay. Patient was seen and examined on the unit by psychiatry and also visited by counselor. Psychotropic medications were adjusted. Patient tolerated medication changes well without side effects. Patient had improvement in presenting psychiatric symptomatology, although he did continue to exhibit a fair degree of negative psychotic symptoms. There was no evidence of any suicidality or homicidality on the inpatient unit. No severe self-care deficit. Patient was medication compliant. He was uneventfully transitioned from the higher acuity unit the lower acuity unit and tolerated the milieu of the lower acuity unit well. Collateral information was obtained from the patient's mother. On the day of discharge: Patient seen and examined. Chart reviewed. Case discussed with nursing staff. No behavioral issues noted overnight. Case discussed with counselor. On my examination today, the patient is requesting discharge from the inpatient psychiatric unit today. He denies any suicidal or homicidal ideation, intent or plan on direct questioning and contracts for safety. I can elicit no depressive or hypomanic/manic symptoms. He denies any audiovisual hallucinations. I can elicit no delusional material. Ongoing negative symptoms noted. He denies any side effects from medications. He is agreeable to initiating Risperdal Consta today, and I applications tester he is now capacitated to consent for this medication. Extensive education provided regarding discharge medication regimen. We discuss need for temporary oral supplementation of Risperdal Consta as well as the need for follow-up Risperdal Consta injections. Teach-back utilized to ensure that patient understood instructions. I did endeavor to reach out to the patient's mother on the day of discharge but was unable to reach her. Suicide and violence risk assessment on day of discharge both suggest lower imminent risk, and the patient's level of function is adequate for outpatient care. Patient has maximized benefit from this inpatient psychiatric hospital stay and will be discharged today with psychiatric follow-up as arranged by counselor. Patient also to follow-up with primary care. I have counseled the patient to return to the psychiatric emergency room for any concerning symptoms as part of general safety plan. Results Blood Pressure 102 / 57 Vital Signs Date Time Temp Pulse Resp B/P (MAP) Pulse Ox O2 Delivery O2 Flow Rate FiO2 04/25/17 05:50 97.5 92 18 102/57 (72) 99 Item Value Date Time White Blood Count 7.7 TH/MM3 04/20/17 0735 Hemoglobin 14.8 GM/DL 04/20/17 0735 Platelet Count 205 TH/MM3 04/20/17 0735 Sodium Level 139 MEQ/L 04/20/17 0735 Potassium Level 4.1 MEQ/L 04/20/17 0735 Chloride Level 103 MEQ/L 04/20/17 0735 Carbon Dioxide Level 27.9 MEQ/L 04/20/17 0735 Blood Urea Nitrogen 12 MG/DL 04/20/17 0735 Creatinine 1.06 MG/DL 04/20/17 0735 Aspartate Amino Transf (AST/SGOT) 20 U/L 04/18/17 0425 Alanine Aminotransferase (ALT/SGPT) 45 U/L 04/18/17 0425 Alkaline Phosphatase 59 U/L 04/18/17 0425 Thyroid Stimulating Hormone 3rd Gen 1.380 uIU/ML 04/18/17 0425 Urine Cannabinoids Screen POS H 04/18/17 0445 Ethyl Alcohol Level LESS THAN 3 MG/DL 04/18/17 0425 Summary of Procedures None done Imaging None done Pending results at discharge: No Medications # of Antipsychotic meds at D/C: 1 Approp Antipsych med options 1 - Minimum of three failed multiple trials of monotherapy. 2 - Documented plan to taper to monotherapy due to previous use of multiple meds OR cross-taper in progress at D/C. 3 - Documentation of augmentation of Clozapine. 4 - Justification other than those listed in allowable values 1-3, document here : Discharge Discharge Date: Apr 25, 2017 Discharge Diagnosis: (1) Schizophrenia Diagnosis: Principal (stabilized) ICD Code: F20.9 - Schizophrenia, unspecified Status: Acute (2) Cannabis abuse Diagnosis: Secondary (counseled to quit) ICD Code: F12.10 - Cannabis abuse, uncomplicated Pt Condition on Discharge: Stable Discharge Disposition: Discharge Home Discharge Instructions Diet Instructions: As Tolerated, No Restrictions Activities you can perform: Weight Bearing as Mirna Scheduled Appointment: as per counselor's notes New Medications: Risperidone (Risperidone) 2 Mg Tab 2 MG PO BID for Mental Health for 21 Days, #42 TAB 0 Refills Continue taking oral Risperdal for 21 days and then stop. Be sure to get your next Risperdal Consta injection. Risperidone Inj (Risperdal Consta Inj) 25 Mg/2 Ml Inj 25 MG IM Q14D for Mental Health, #2 VIAL 0 Refills This dose of Risperdal Consta is due on 05/09/17. Discharge Time > 30 minutes Mental Status Examination Appearance: Appropriate Consciousness: Alert Orientation: x4 Motor Activity: Normal gait, Other (No hand tremor, no dystonia, no dyskinesia , no other motor abnormalities noted. ) Speech: Unremarkable Language: Adequate Fund of Knowledge: Adequate Attention and Concentration: Adequate Memory: Unremarkable Mood: Appropriate Affect: Flat Thought Process & Associations: Intact Thought Content: Appropriate Hallucination Type: None Delusion Type: None Suicidal Ideation: No Suicidal Plan: No Suicidal Intention: No Homicidal Ideation: No Homicidal Plan: No Homicidal Intention: No Mental Status Exam Remarks Insight and judgment are fair Discharge/Advance Care Plan Health Problems: (1) Schizophrenia (2) Cannabis abuse Goals to promote your health * To prevent worsening of your condition and complications * To maintain your health at the optimal level Directions to meet your goals Take your medications as prescribed Follow your dietary instruction Follow activity as directed Keep your appointments as scheduled Take your immunizations and boosters as scheduled If your symptoms worsen call your PCP, if no PCP go to Urgent Care Center or Emergency Room For 28/08 questions related to your inpatient stay or results of tests pending at discharge, please contact Dr. Yung Pederson at Smoking is Dangerous to Your Health. Avoid second hand smoking Problem Qualifiers (1) Schizophrenia: Qualified Codes: F20.1 - Disorganized schizophrenia Yung Pederson MD Apr 25, 2017 10:45
[2017-04-25] MEDS ORDERED: RISP25P IM (12:13)
[2017-04-25] MEDS ORDERED: risperiDONE EXT REL INJ 25 MG/2 ML VIAL IM ONE (13:00)
== END 2017-04-25 14:50 | disposition home or self-care (01) | DRG 885 ==
LOC: NEPD 21:55 → NEDA 04-18 20:15 → H270 04-18 20:44 → H260 04-24 15:22
PROVIDERS: ADMIT Psychiatry & Neurology Psychiatry; ATTEND Psychiatry & Neurology Psychiatry
DX: F20.9 Schizophrenia, unspecified (principal); F12.10 Cannabis abuse, uncomplicated
CPT/HCPCS: 80048; 80053; 80307; 83735; 84443; 85025; 93005; 96372; J2794; J3486

== ENCOUNTER 2017-09-21 18:34 | Inpatient (IN) ==
--- NOTE | 2017-09-21 19:13 | ED ---
HPI General Chief complaint: Psychiatric Symptoms Stated complaint: Psych Eval,Dbpd Time Seen by Provider: 09/21/17 19:09 History of Present Illness HPI narrative: 27-year-old male with history of schizophrenia presents under [place] act initially by the Police Department. According to his paperwork the patient was seen continuously walking into traffic. During examination the patient is refusing to provide any history. History is therefore limited. Related Data Home Medications Medication Instructions Recorded Confirmed No Known Home Medications 09/21/17 09/21/17 Allergies Allergy/AdvReac Type Severity Reaction Status Date / Time No Known Allergies Allergy Unknown Uncoded 04/18/17 23:39 Review of Systems ROS Unobtainable ROS Unobtainable: unobtainable due to mental condition PMFSH Medical History Medical History Patient denies significant medical history (Acute) Social History Social History Recent Travel in [facility] within the Last 8 Weeks: No Recent Out of Country Travel within the Last 8 Weeks: No Exam Narrative Exam Narrative: GENERAL: Well-developed well-nourished male in no acute distress SKIN: Warm and dry. Musculoskeletal: Able to ambulate normally. Neurologic: No obvious focal neurologic deficits. PSYCHIATRIC: Agitated and uncooperative Patient refuses remaining aspects of the examination. Course Initial Documented Vital Signs Temperature 99.0 F 09/21/17 18:49 Pulse Rate 95 H 09/21/17 18:49 Respiratory Rate 14 09/21/17 18:49 Blood Pressure 140/66 09/21/17 18:49 Pulse Oximetry 98 09/21/17 18:49 Last Documented Vital Signs Temperature 99.0 F 09/21/17 18:49 Pulse Rate 95 H 09/21/17 18:49 Respiratory Rate 14 09/21/17 18:49 Blood Pressure 140/66 09/21/17 18:49 Pulse Oximetry 98 09/21/17 18:49 Medical Decision Making MDM Narrative Medical decision making narrative: Mental health screening discussed with the patient. Psychiatric screen ordered. Unfortunately the patient's behavior increasingly escalated and he became very uncooperative requiring the use of restraints, he was given Zyprexa and Benadryl. The patient's lab work is been reviewed. She is medically cleared for psychiatric disposition. Medical Screen Exam Complete: Yes Emergency Medical Condition: Yes Differential Diagnosis Differential Diagnosis: Schizophrenia, acute psychosis, substance-induced mood disorder, adjustment reaction, schizoaffective disorder Lab Data Result diagrams: 09/21/17 18:51 09/21/17 18:51 Lab Results 09/21/17 09/21/17 09/21/17 Range/Units 18:51 18:51 22:15 WBC 8.0 (4.0-11.0) th/mm3 RBC 4.49 L (4.50-5.90) mil/mm3 Hgb 13.6 (13.0-17.0) gm/dL Hct 40.0 (39.0-51.0) % MCV 89.1 (80.0-100.0) fL MCH 30.2 (27.0-34.0) pg MCHC 33.9 (32.0-36.0) % RDW 13.0 (11.6-17.2) % Plt Count 173 (150-450) th/mm3 MPV 9.0 (7.0-11.0) fL Neut % (Auto) 57.9 (16.0-70.0) % Lymph % (Auto) 32.5 (9.0-44.0) % [place] % (Auto) 7.3 (0.0-8.0) % Eos % (Auto) 1.5 (0.0-4.0) % Baso % (Auto) 0.8 (0.0-2.0) % Neut # (Auto) 4.6 (1.8-7.7) th/mm3 Lymph # (Auto) 2.6 (1.0-4.8) th/mm3 [place] # (Auto) 0.6 (0.0-0.9) th/mm3 Eos # (Auto) 0.1 (0.0-0.4) th/mm3 Baso # (Auto) 0.1 (0.0-0.2) th/mm3 WBC Differential . Differential Comment Auto diff final Sodium 140 (136-145) meq/L Potassium 3.4 L (3.5-5.1) meq/L Chloride 105 (98-107) meq/L Carbon Dioxide 24.3 (21.0-32.0) meq/L Anion Gap 11 (5-15) meq/L BUN 13 (7-18) mg/dL Creatinine 1.22 (0.60-1.30) mg/dL Estimated GFR 85 L (>89) mL/min Random Glucose 103 (74-106) mg/dL Calcium 8.8 (8.5-10.1) mg/dL Total Bilirubin 0.3 (0.2-1.0) mg/dL AST 11 L (15-37) U/L ALT 16 (12-78) U/L Alkaline Phosphatase 52 (45-117) U/L Total Protein 8.2 (6.4-8.2) g/dL Albumin 4.2 (3.4-5.0) g/dL TSH 1.530 (0.358-3.740) uIU/mL Urine Opiates Screen Neg (Neg) Ur Barbiturates Screen Neg (Neg) Ur Amphetamines Screen Neg (Neg) U Benzodiazepines Scrn Neg (Neg) Urine Cocaine Screen Neg (Neg) U Cannabinoids Screen Pos H (Neg) Serum Alcohol Less than 3 (0-5) mg/dL Discharge Plan Discharge Disposition Patient Disposition: 30 Still Patient Discharge Condition Condition: Stable Discharge Details Diagnosis: Encounter for medical clearance for patient hold Physicians Team ED Provider: Melvi Juarez ED Midlevel Provider: Ulises Barba Primary Care Provider: UNKNOWN, Rxs /Orders / Referrals /Forms Prescriptions: No Action No Known Home Medications RF: 0 Status ED Status: Medically Cleared
[2017-09-21 19:21] LABS: Baso # (Auto) 0.1 th/mm3 (0.0-0.2); Baso % (Auto) 0.8 % (0.0-2.0); Eos # (Auto) 0.1 th/mm3 (0.0-0.4); Eos % (Auto) 1.5 % (0.0-4.0); Hemoglobin 13.6 gm/dL (13.0-17.0); Lymph # (Auto) 2.6 th/mm3 (1.0-4.8); Lymph % (Auto) 32.5 % (9.0-44.0); Mean Corpuscular HGB Conc 33.9 % (32.0-36.0); Mean Corpuscular Hemoglobin 30.2 pg (27.0-34.0); Mean Corpuscular Volume 89.1 fL (80.0-100.0); Mono # (Auto) 0.6 th/mm3 (0.0-0.9); Mono % (Auto) 7.3 % (0.0-8.0); Neut # (Auto) 4.6 th/mm3 (1.8-7.7); Neut % (Auto) 57.9 % (16.0-70.0); Platelet Count 173 th/mm3 (150-450); Red Blood Count 4.49 mil/mm3 (4.50-5.90)
[2017-09-21 19:43] LABS: Alanine Aminotransferase 16 U/L (12-78); Albumin 4.2 g/dL (3.4-5.0); Anion Gap 11 meq/L (5-15); Aspartate Aminotransferase 11 U/L (15-37); Blood Urea Nitrogen 13 mg/dL (7-18); Calcium 8.8 mg/dL (8.5-10.1); Carbon Dioxide 24.3 meq/L (21.0-32.0); Chloride 105 meq/L (98-107); Glomerular Filtration Rate 85 mL/min (>89); Glucose,Random 103 mg/dL (74-106); Potassium 3.4 meq/L (3.5-5.1); Sodium 140 meq/L (136-145)
[2017-09-21 19:53] LABS: Alkaline Phosphatase 52 U/L (45-117); Total Protein 8.2 g/dL (6.4-8.2)
[2017-09-21 22:42] LABS: Amphetamine Screen,Urine Neg (Neg); Barbiturate Screen,Urine Neg (Neg); Cannabinoid Screen,Urine Pos (Neg); Cocaine Screen,Urine Neg (Neg)
[2017-09-21 22:56] LABS: Opiate Screen,Urine Neg (Neg)
[2017-09-22] MEDS ORDERED: LORazepam 1 MG Tablet PO PRN (16:24)
[2017-09-22] MEDS ORDERED: Aluminum/Magnesium/Simethacone Susp 30 ML UDC PO PRN (16:24)
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
[2017-09-22] MEDS: Senna/Docusate Sodium 8.6/50 MG Tablet PO SCH (21:51)
[2017-09-23 08:41] LABS: Anion Gap 5 meq/L (5-15); Blood Urea Nitrogen 13 mg/dL (7-18); Calcium 8.6 mg/dL (8.5-10.1); Carbon Dioxide 29.5 meq/L (21.0-32.0); Chloride 106 meq/L (98-107); Glomerular Filtration Rate Greater Than 89 mL/min (>89); Glucose,Random 73 mg/dL (74-106); Potassium 4.4 meq/L (3.5-5.1); Sodium 140 meq/L (136-145)
[2017-09-23 08:46] LABS: Chol/HDL Ratio 3.53 Ratio; Cholesterol 160 mg/dL (120-200); HDL Cholesterol 45.2 mg/dL (40.0-60.0); LDL Cholesterol,Calculated 93 mg/dL (0-99); Triglycerides 111 mg/dL (42-150)
[2017-09-23] MEDS: Senna/Docusate Sodium 8.6/50 MG Tablet PO SCH ×2 (08:52→20:47)
[2017-09-23] MEDS ORDERED: Aluminum/Magnesium/Simethacone Susp 30 ML UDC PO PRN (10:30)
[2017-09-23] MEDS ORDERED: Haloperidol Inj 5 MG/ML Ampul IM PRN (10:31)
[2017-09-23] MEDS ORDERED: Acetaminophen 325 MG Tablet PO PRN (10:31)
--- NOTE | 2017-09-23 10:39 | P.HPPSY ---
Provisional Diagnosis Admission Date: September 22, 2017 16:44 [place] I.: Schizophrenia chronic paranoid type, marijuana abuse Competence Certification of Person's Competence To Provide Express and Informed Consent I have personally examined Dannie Baker, a person being served at [facility] on, September 23, 2017 1038. Express and informed consent means consent voluntarily given in writing, by a competent person, after sufficient explanation and disclosure of the subject matter involved to enable the person to make a knowing and willful decision without any element of force, fraud, deceit, duress, or other form of constraint or coercion. This person is 18 years of age or older, is not now known to be incompetent to consent to treatment with a guardian advocate, and does not have a health care surrogate or proxy currently making medical treatment decisions. I have found this person to be one of the following: [] Competent to provide express and informed consent, as defined above, for voluntary admission to this facility and is competent to provide express and informed consent for treatment. He/she has the consistent capacity to make well reasoned, willful, and knowing decisions concerning his or her medical or mental health treatment. The person fully and consistently understands the purpose of the admission for examination/placement and is fully capable of personally exercising all rights assured under [place]xxx] Incompetent to provide express and informed consent to voluntary admission , and this is incompetent to provide express and informed consent to treatment. The person must be transferred to involuntary status and a petition for a guardian advocate filed with the Circuit Court. [] Refusing to provide express and informed consent to voluntary admission but is competent to provide express and informed consent for treatment. The person must be discharged or transferred to involuntary status. Form shall be completed within 24 hours of a person's arrival at the receiving facility and filed in the clinical record of each person: 1. Admitted on a voluntary basis 2. Permitted to provide express and informed consent to his/her own treatment 3. Allowed to transfer from involuntary to voluntary status 4. Prior to permitting a person to consent to his or her own treatment after having been previously found incompetent to consent to treatment. History of Present Illness Capacity: Lacks capacity History of Present Illness: Patient is a 27-year-old -[place] male known to us from prior contacts comes here under [place] act by the [place] [employer] dated 2017 at 6:39 PM that document reviewed states quietly Samuel has a substantial likelihood that without care or treatment he will cause serious harm to himself he continuously walks into oncoming traffic on [address] It appears patient was hospitalized here last year under Dr. Yung Javieretz was discharged on Resporal and Risperdal Consta. It appears she has had no follow- up either with medication management or injections. That is refused to be compliant with outpatient treatment he was in his mother's house. Became more paranoid threatening destructive breaking glass turning the television off a wall throwing rocks and rusty through windows besides walking in traffic. Patient did not need emergency treatment orders in the ED. At the present time patient standing in his room on 2700 nurse Bety present throughout session. Patient is tall slender -[place]an male quite vigilant angry distracted with significant thought blocking. He denies mental illness denies need for medication because does not like the way it makes him feel. He said he was upset with his mother which is why he did that instruction. He does deny voices I feel he is really responding to them. At this time he is unwilling to give any further information. I attempted to reach patient's mother at [phone] there is no answer we will try later. The meantime patient does meet criteria for an involuntary psychiatric hospitalization of the [place]arez act. I will do first opinion request second opinion. I feel he does not have capacity thus I will ask for health care surrogate and guardian advocate. With guardian advocate a healthcare surrogate permission we will offer Resporal M tab 2 mg twice daily in anticipation of perhaps giving him the in Burr sustain injection. - Inpatient Certification I certify that the inpatient services were ordered in accordance with Medicare regulations governing the order. This includes certification that hospital inpatient services are reasonable and necessary and in the case of services not specified as inpatient-only under 42 CFR 419.22(n), that they are appropriately provided as inpatient services in accordance to with the 2-midnight benchmark under 43 CFR 412.3(e) I certify that inpatient psychiatric hospital services are medically necessary. Evaluation and treatment and/or diagnostic testing are expected to improve the patient's condition. The patient needs on a daily basis, active treatment furnished directly by or requiring the supervision of inpatient psychiatric facility personnel. Estimated Total Length of Stay (Days): 7 Plans for Post Hospital Care: Home Review of Systems All other systems reviewed negative except as stated in HPI [facility] - History History Provided By: Patient, Medical Record - Medical History Medical History: Medical History (Last Updated 09/21/17 @ 18:52 by Huong Buchanan RN) Patient denies significant medical history - Tobacco History Second Hand Smoke Exposure: No Smoking Status: Unknown if ever smoked Tobacco Type: Cigarettes - Alcohol History How Often Do You Have a Drink Containing Alcohol: Unable to Obtain - Substance Use History Substance History: Unable to Obtain - Travel History Recent Travel in the USA Within the Last 8 Weeks: No Recent Travel Out of the Country Within the Last 8 Weeks: No - Immunization History Tetanus Immunization: <5 Years Hx Influenza Vaccine This Season: No Quality Measures - Psychiatric History Psychological trauma history: Patient refuses to answer Violence risk to others in the last 6 months: Patient quite threatening towards family destruction of much properly also walking in traffic Violence risk to self in the last 6 months: Walking in traffic on the overall - Substance Abuse History Drug or alcohol use in the past 12 months: Patient uses marijuana regularly - Patient Strengths Patient's strengths (minimum of 2): Patient verbal able access healthcare Medications and Allergies Active Medications: Active Medications Acetaminophen (Tylenol) 650 mg PO Q4H PRN PRN Reason: Pain 1-5 or Temp >101F Al Hydrox/Mg Hydrox/Simethicone (Mag-Al Plus Susp Liq) 30 ml PO Q6H PRN PRN Reason: DYSPEPSIA Al Hydrox/Mg Hydrox/Simethicone (Mag-Al Plus Susp Liq) 30 ml PO Q6H PRN PRN Reason: DYSPEPSIA Al Hydroxide/Mg Hydroxide (Milk Of Magnesia Liq) 30 ml PO Q12H PRN PRN Reason: Mild Constipation Al Hydroxide/Mg Hydroxide (Milk Of Magnesia Liq) 30 ml PO Q12H PRN PRN Reason: Mild Constipation Diphenhydramine HCl (Benadryl) 50 mg PO HS PRN PRN Reason: INSOMNIA Haloperidol Lactate (Haldol Inj) 10 mg IM Q6H PRN PRN Reason: SEVERE AGITATION Lorazepam (Ativan) 1 mg PO Q6H PRN PRN Reason: MODERATE TO SEVERE ANXIETY Risperidone (Risperdal M-Tab) 2 mg PO BID [facility] Senna/Docusate Sodium (Melanie-Colace) 1 tab PO BID ELBERT Last Admin: 09/23/17 08:52 Dose: 1 tab Allergies Allergy/AdvReac Type Severity Reaction Status Date / Time No Known Allergies Allergy Unknown Uncoded 04/18/17 23:39 Home Medications Medication Instructions Recorded Confirmed Type No Known Home Medications 09/21/17 09/21/17 History Results - Labs CBC & Chem 7: 09/21/17 18:51 09/23/17 07:40 Labs: Laboratory Results - last 24 hr 09/23/17 07:40 Sodium 140 Potassium 4.4 D Chloride 106 Carbon Dioxide 29.5 Anion Gap 5 BUN 13 Creatinine 1.08 Estimated GFR Greater than 89 Random Glucose 73 L Calcium 8.6 Triglycerides 111 Cholesterol 160 LDL Cholesterol, Calc 93 HDL Cholesterol 45.2 Cholesterol/HDL Ratio 3.53 Exam Vital signs: Vital Signs 09/22/17 18:34 09/23/17 06:14 Temperature 97.5 F L 98.0 F Pulse Rate 52 L 74 Respiratory Rate 18 17 Blood Pressure 108/63 101/57 L Pulse Oximetry 100 99 Intake & Output 09/22/17 09/23/17 09/23/17 18:59 06:59 18:59 Weight 168.1 kg Other: Weight On Admission 168.1 kg Narrative: Patient seen in his room with nurse, patient no acute distress, no complaints of respiratory pain no complaints of chest pain, no complaints of abdominal pain. Patient moving all 4 extremities without difficulty Mental Status Examination Appearance: Appropriate Consciousness: Alert Orientation: Person, Place Motor Activity: Normal gait Speech: Hesitant, Slow, Other (Mumbling) Language: Adequate Fund of Knowledge: Adequate Attention and Concentration: Inadequate Memory: Unremarkable Mood: Angry, Other (Appears withdrawn) Affect: Other (Decreased range and intensity) Thought Process & Associations: Intact Thought Content: Thought blocking, Delusional Hallucination Type: None (Though there is some significant thought blocking noted) Delusion Type: None, Other (Vigilant) Suicidal Ideation: No Suicidal Plan: No Suicidal Intention: No Homicidal Ideation: No Homicidal Plan: No Homicidal Intention: No Insight: Poor Judgment: Poor Assessment and Plan - Assessment (1) Schizophrenia Code(s): F20.9 - Schizophrenia, unspecified Status: Acute - Plan Plan: Estimated LOS: [] days This time patient does meet criteria for involuntary psychiatric hospitalization on the [place] act I will do first opinion request second opinion I feel he does not have capacity we will ask for health care surrogate and guardian advocate. We will offer Risperdal M tab 2 mg twice daily in anticipation of in Burr sustain up. Justification for Continued Inpatient Stay: At this time patient would decompensate a place to a lower level of care Discharge Planning: To be determined Request Healthcare Surrogate/Guardian Advocate?: Yes (1) Schizophrenia Qualifiers: Schizophrenia type: paranoid schizophrenia Qualified Code(s): F20.0 - Paranoid schizophrenia
[2017-09-23] MEDS: risperiDONE 2 MG ODT PO SCH (11:54)
[2017-09-23 13:46] LABS: Hemoglobin A1c 5.6 % (4.3-6.0)
[2017-09-24] MEDS: Senna/Docusate Sodium 8.6/50 MG Tablet PO SCH (08:33)
--- NOTE | 2017-09-24 11:21 | P.CONPSY ---
Provisional Diagnosis Admission Date: September 22, 2017 16:44 [place] I.: 1. Schizophrenia, disorganized type, acute exacerbation 2. Cannabis abuse [place] II.: Deferred History of Present Illness Service: Psychiatry Consult date: 09/24/17 Requesting Physician: Gene Rock Reason for Consult: Second opinion for involuntary psychiatric hospitalization Primary Care Provider: UNKNOWN Family Provider: No Primary Care Physician History of Present Illness: Mr. Baker is a 27-year-old male with a history of schizophrenia and cannabis use issues who presents under a [place] act by [place] [employer] alleging that the patient was continuously walking into traffic on [address]. Patient was seen by Dr. Rock for an H&P. Reviewing the electronic medical record, I note that the patient was psychiatrically admitted most recently under my care in April of this year and was started on Risperdal Consta at that time. Patient seen and examined with counselor and nurse. Chart reviewed. Case discussed with nursing staff who reports that the patient relates that he "trashed his mom's house because he felt like she was rejecting him." On my examination today, the patient presents as somewhat disorganized and internally stimulated, although he denies AVH. The patient tells me that his mother called the police on him because he jumped through a window. He says that he and his mother were arguing about wigs. When I ask him to provide more details about this argument, he tells me "it's just a metaphor. She got mad about it." No luz delusional material. He denies any suicidal or homicidal ideation, although it is unclear whether the patient is reliable to contract for safety. He says that he was running into traffic to get away from the police and that there was no suicidal intent in this behavior. Mood is "straight." I can elicit no severe depressive or hypomanic/manic symptoms. He reports that his sleep and appetite along with his hygiene are fair. Psychiatric interview is somewhat limited as a consequence of the patient's psychiatric symptomatology, and I do suspect that he is not entirely being forthcoming regarding the extent of his psychiatric symptomatology. He has no acute physical complaints. With the patient's permission, I obtained collateral information from mother Anny Xiong [phone]. She is willing to act as HCS. She is unsure if Risperdal was efficacious for patient's condition and does not recall if patient remained improved for long after discharge from the hospital last time. After discussing antipsychotic alternatives (including Abilify, Haldol, Prolixin), Ms. Xiong prefers to resume Risperdal with plan to transition to [facility]. We discuss potential antipsychotic side effects including metabolic side effects and movement disorder side effects such as EPS, TD as well as NMS. We discussed the dosing schedule of the Invega Sustenna. I obtained consent for medications from Ms. Xiong. Past psychiatric history: Patient likely an unreliable historian. He has a history of schizophrenia and cannabis use. He says that he is not presently under the care of a psychiatrist. He says that he stopped taking his psychotropic medications immediately after discharge from the inpatient unit last time. Most recent psychiatric admission was here at [facility]. He denies any history of suicide attempts. Family history: The patient denies any family history of mental illness. Chemical dependency history: The patient reports sporadic use of cannabis. Most recently, he says that he smoked cannabis for his brother's birthday. Social history: The patient resides with his mother. He is single with no children. He has a grade 11 education. He is unsure whether he has any income , such as disability income. He denies any legal history. Denies any access to guns or firearms. Denies any history of trauma. Review of Systems All other systems reviewed negative except as stated in HPI (Limitation: Psychosis) [facility] - History History Provided By: Patient, Medical Record - Medical History Medical History: Medical History (Last Updated 09/21/17 @ 18:52 by Huong Buchanan RN) Patient denies significant medical history - Tobacco History Second Hand Smoke Exposure: No Smoking Status: Unknown if ever smoked Tobacco Type: Cigarettes - Alcohol History How Often Do You Have a Drink Containing Alcohol: Unable to Obtain - Substance Use History Substance History: No History of Abuse - Travel History Recent Travel in the USA Within the Last 8 Weeks: No Recent Travel Out of the Country Within the Last 8 Weeks: No - Immunization History Tetanus Immunization: <5 Years Hx Influenza Vaccine This Season: No Medications and Allergies Active Medications: Active Medications Acetaminophen (Tylenol) 650 mg PO Q4H PRN PRN Reason: Pain 1-5 or Temp >101F Al Hydrox/Mg Hydrox/Simethicone (Mag-Al Plus Susp Liq) 30 ml PO Q6H PRN PRN Reason: DYSPEPSIA Al Hydroxide/Mg Hydroxide (Milk Of Magnesia Liq) 30 ml PO Q12H PRN PRN Reason: Mild Constipation Diphenhydramine HCl (Benadryl) 50 mg PO HS PRN PRN Reason: INSOMNIA Haloperidol Lactate (Haldol Inj) 10 mg IM Q6H PRN PRN Reason: SEVERE AGITATION Lorazepam (Ativan) 1 mg PO Q6H PRN PRN Reason: MODERATE TO SEVERE ANXIETY Risperidone (Risperdal M-Tab) 2 mg PO BID [facility] Last Admin: 09/23/17 11:54 Dose: Not Given Senna/Docusate Sodium (Melanie-Colace) 1 tab PO BID [facility] Last Admin: 09/24/17 08:33 Dose: 1 tab Allergies Allergy/AdvReac Type Severity Reaction Status Date / Time No Known Allergies Allergy Unknown Uncoded 04/18/17 23:39 Home Medications Medication Instructions Recorded Confirmed Type No Known Home Medications 09/21/17 09/21/17 History Exam Vital signs: Vital Signs 09/23/17 17:40 09/24/17 06:00 Pulse Rate 65 64 Respiratory Rate 16 17 Blood Pressure 109/64 112/57 L Pulse Oximetry 100 Intake & Output 09/23/17 09/24/17 09/24/17 18:59 06:59 18:59 Weight 70.9 kg Narrative: Physical exam completed by ED provider. On my examination today, patient appears to be in no acute physical distress. No motor abnormalities noted. Labs and vital signs reviewed: Laboratory Tests 09/21/17 09/21/17 09/21/17 18:51 18:51 22:15 WBC 8.0 Hgb 13.6 Plt Count 173 Sodium Potassium Chloride Carbon Dioxide BUN Creatinine Estimated GFR Random Glucose Hemoglobin A1c AST 11 L ALT 16 Alkaline Phosphatase 52 TSH 1.530 U Cannabinoids Screen Pos H Serum Alcohol Less than 3 09/23/17 09/23/17 07:40 07:40 WBC Hgb Plt Count Sodium 140 Potassium 4.4 D Chloride 106 Carbon Dioxide 29.5 BUN 13 Creatinine 1.08 Estimated GFR Greater than 89 Random Glucose 73 L Hemoglobin A1c 5.6 AST ALT Alkaline Phosphatase TSH U Cannabinoids Screen Serum Alcohol Besides mild hypoglycemia on BMP and toxicological findings, no clinically significant laboratory abnormalities noted. EKG was read as sinus rhythm with a QTC of 383 ms, not prolonged. Mental Status Examination Appearance: Appropriate Consciousness: Alert Orientation: Person, Place (At least) Motor Activity: Normal gait Speech: Hesitant, Slow Language: Other (Somewhat rambling) Fund of Knowledge: Adequate Attention and Concentration: Inadequate Memory: Unremarkable Mood: Other ("Straight") Affect: Blunt Thought Process & Associations: Other (Thought disorder with occasional disorganization present) Thought Content: Thought blocking Hallucination Type: Other (Denies AVH but appears internally stimulated) Delusion Type: None Suicidal Ideation: No Suicidal Plan: No Suicidal Intention: No Homicidal Ideation: No Homicidal Plan: No Homicidal Intention: No Insight: Poor Judgment: Poor Assessment and Plan - Assessment (1) Schizophrenia Code(s): F20.9 - Schizophrenia, unspecified Status: Acute (2) Cannabis abuse Code(s): F12.10 - Cannabis abuse, uncomplicated Status: Acute - Plan Plan: Given the circumstances of the patient's presentation here, and his presentation on my examination today, I concur with Dr. Rock that the patient meets criteria for involuntary psychiatric hospitalization under the [place] act. I have completed the second opinion paperwork. I will be assuming primary care of the case. I note that Dr. Rock has started the patient on Risperdal 2 mg twice daily, and I will continue this dose as the patient is not antipsychotic ranjan and has tolerated Risperdal before. If this agent is efficacious, I will plan for a fairly rapid transition to Invega Sustenna. I will provide Cogentin as needed for EPS, Ativan as needed for anxiety and Benadryl as needed for sleep. Continue to monitor on the inpatient unit. Continue other medications and care as ordered. ELOS: 7-9 days. Justification for Continued Inpatient Stay: Medication changes. Impairment in reality construction. High risk for decompensation in less restrictive environment. Discharge Planning: Pending psychiatric stabilization Request Healthcare Surrogate/Guardian Advocate?: Yes (1) Schizophrenia Qualifiers: Schizophrenia type: disorganized schizophrenia Qualified Code(s): F20.1 - Disorganized schizophrenia
[2017-09-24] MEDS ORDERED: Benztropine Inj 2 MG/2 ML Ampul IM PRN (11:34)
[2017-09-24] MEDS ORDERED: risperiDONE 2 MG ODT PO ONE (12:15)
--- NOTE | 2017-09-24 17:17 | ECG ---
Date Performed: 09/23/2017 Time Performed: 13:13:40 PTAGE: 27 years EKG: Sinus rhythm POSSIBLE RIGHT VENTRICULAR CONDUCTION DELAY BORDERLINE ECG PREVIOUS TRACING : 04/19/2017 13.33 Since the previous tracing, no significant change noted DOCTOR: Shaun Ojeda Interpretating Date/Time 09/24/2017 17:15:39
[2017-09-24] MEDS: risperiDONE 2 MG ODT PO SCH (20:45)
[2017-09-25] MEDS: risperiDONE 2 MG ODT PO SCH (09:06)
--- NOTE | 2017-09-25 12:13 | P.PNPSY ---
Subjective Remarks: Patient seen and examined. Chart reviewed. Case discussed with nursing staff. Patient reportedly medication compliant but remains internally stimulated and guarded. On my examination today, the patient continues to respond to internal stimuli, although he does make an effort to hide this fact. He denies any audiovisual hallucinations. He remains a little bit guarded. He denies any SI or HI. Denies any side effects from medications, nor does he have any evident sedation or side effects from medications. No physical complaints. Vital Signs Temp Pulse Resp BP Pulse Ox 09/25/17 05:45 97.9 F 81 16 110/70 99 09/24/17 17:19 98.2 F 77 17 145/65 H 100 Labs reviewed. No new labs. EKG reviewed. QTc within normal limits. Review of Systems All other systems reviewed negative except as stated in HPI (Limitation: Psychosis) Mental Status Examination Appearance: Appropriate Consciousness: Alert Orientation: Person, Place (At least) Motor Activity: Normal gait, Other (No motor abnormalities noted.) Speech: Hesitant Language: Other (Somewhat rambling) Fund of Knowledge: Adequate Attention and Concentration: Inadequate Memory: Unremarkable Mood: Appropriate Affect: Blunt Thought Process & Associations: Circumstantial Thought Content: Thought blocking Hallucination Type: Other (Remains internally preoccupied) Delusion Type: Other (Guarded) Suicidal Ideation: No Suicidal Plan: No Suicidal Intention: No Homicidal Ideation: No Homicidal Plan: No Homicidal Intention: No Insight: Poor Judgment: Poor Assessment and Plan - Assessment (1) Schizophrenia Code(s): F20.9 - Schizophrenia, unspecified Status: Acute (2) Cannabis abuse Code(s): F12.10 - Cannabis abuse, uncomplicated Status: Acute - Plan Plan: Titrate Risperdal to 3 mg twice daily to target psychotic symptoms. Plan remains for transition to long-acting injectable once we identify efficacious agent. Continue to monitor on the inpatient unit. OT consultation. Continue other medications and care as ordered. Justification for Continued Inpatient Stay: Medication changes. Risk for decompensation in less restrictive environment. Discharge Planning: Pending psychiatric stabilization. Request Healthcare Surrogate/Guardian Advocate?: Yes (1) Schizophrenia Qualifiers: Schizophrenia type: disorganized schizophrenia Qualified Code(s): F20.1 - Disorganized schizophrenia
[2017-09-25] MEDS: risperiDONE 3 MG ODT PO SCH (20:24)
[2017-09-26] MEDS: risperiDONE 3 MG ODT PO SCH ×2 (08:43→20:38)
--- NOTE | 2017-09-26 09:21 | P.PNPSY ---
Subjective Remarks: Patient seen and examined with counselor. Chart reviewed. Case discussed with nursing staff. No behavioral issues noted overnight. On my examination today, the patient displays some poverty of thought. He remains somewhat internally stimulated. He does report that he is sleeping well and denies suicidal or homicidal ideation. He denies side effects from medications. No physical complaints. Vital Signs Temp Pulse Resp BP Pulse Ox 09/26/17 05:57 97.0 F L 82 17 107/53 L 98 09/25/17 18:27 97.9 F 98 H 18 111/59 L 98 Labs reviewed. No new labs. Review of Systems All other systems reviewed negative except as stated in HPI (Limitation: Psychosis) Mental Status Examination Appearance: Appropriate Consciousness: Alert Orientation: Person, Place (At least) Motor Activity: Normal gait, Other (No abnormal motor movements noted) Speech: Unremarkable Language: Adequate Fund of Knowledge: Adequate Attention and Concentration: Other (Fair) Memory: Unremarkable Mood: Appropriate Affect: Blunt Thought Process & Associations: Intact Thought Content: Thought blocking Hallucination Type: Other (Remains somewhat internally stimulated) Delusion Type: None Suicidal Ideation: No Suicidal Plan: No Suicidal Intention: No Homicidal Ideation: No Homicidal Plan: No Homicidal Intention: No Insight: Poor Judgment: Poor Assessment and Plan - Assessment (1) Schizophrenia Code(s): F20.9 - Schizophrenia, unspecified Status: Acute (2) Cannabis abuse Code(s): F12.10 - Cannabis abuse, uncomplicated Status: Acute - Plan Plan: Possibly some early response to Risperdal therapy. Continue to monitor on current Risperdal dose to ensure this agent is efficacious for patient's condition. I have also asked the counselor to have patient's family come in for a visit ideally this evening to provide their insight as to whether the Risperdal is providing adequate antipsychotic effect. Plan remains for transition to long-acting injectable antipsychotic. We will transfer the patient to the lower acuity unit today as behavior seems more appropriate for that unit. Continue other medications and care as ordered. Justification for Continued Inpatient Stay: Impairment in reality construction. Risk for decompensation in less restrictive environment. Discharge Planning: Pending psychiatric stabilization. Request Healthcare Surrogate/Guardian Advocate?: Yes (1) Schizophrenia Qualifiers: Schizophrenia type: disorganized schizophrenia Qualified Code(s): F20.1 - Disorganized schizophrenia
[2017-09-27] MEDS: risperiDONE 3 MG ODT PO SCH (09:19)
--- NOTE | 2017-09-27 10:49 | P.DSPSY ---
Psychiatry Discharge Summary Inpatient Psychiatric care?: Yes Advance Directives: No Mental Health Advance Directive: No Health Care Proxy: No - Admission Admission Date: September 22, 2017 16:44 - Admission Diagnosis (1) Schizophrenia Code(s): F20.9 - Schizophrenia, unspecified (2) Cannabis abuse Code(s): F12.10 - Cannabis abuse, uncomplicated Brief History: Patient is a 27-year-old -[place] male known to us from prior contacts comes here under [place] act by the [place] [employer] dated 2017 at 6:39 PM that document reviewed states quietly Samuel has a substantial likelihood that without care or treatment he will cause serious harm to himself he continuously walks into oncoming traffic on [address] It appears patient was hospitalized here last year under Dr. Yung Javieretz was discharged on Resporal and Risperdal Consta. It appears she has had no follow- up either with medication management or injections. That is refused to be compliant with outpatient treatment he was in his mother's house. Became more paranoid threatening destructive breaking glass turning the television off a wall throwing rocks and rusty through windows besides walking in traffic. Patient did not need emergency treatment orders in the ED. At the present time patient standing in his room on [address] nurse [address] present throughout session. Patient is tall slender -[place] male quite vigilant angry distracted with significant thought blocking. He denies mental illness denies need for medication because does not like the way it makes him feel. He said he was upset with his mother which is why he did that instruction. He does deny voices I feel he is really responding to them. At this time he is unwilling to give any further information. I attempted to reach patient's mother at [phone] there is no answer we will try later. The meantime patient does meet criteria for an involuntary psychiatric hospitalization of the [place] act. I will do first opinion request second opinion. I feel he does not have capacity thus I will ask for health care surrogate and guardian advocate. With guardian advocate a healthcare surrogate permission we will offer Resporal M tab 2 mg twice daily in anticipation of perhaps giving him the in [place] sustain injection. Tobacco Use In Past 30 Days: No How Often Do You Have a Drink Containing Alcohol: Unable to Obtain Hospital Course: Patient was admitted to a locked, inpatient psychiatric unit. Appropriate precautions were in place throughout patient's hospital stay. Patient was seen and examined on the unit by psychiatry and also visited by counselor. Psychotropic medications were adjusted. There was no evidence of any suicidality or homicidality on the unit unit. The patient's case was presented to the [facility] court, and the dump truck operator has ordered the patient's discharge from the inpatient psychiatric unit today per patient's request. I have returned after the [place] act court to meet with the patient on the unit to see if he would be willing to remain voluntarily for further observation and stabilization , but he has declined. He does provide consent for administration of Risperdal Consta prior to discharge after a discussion of the R/B/A, and I have discussed with him the need for temporary supplementation with oral Risperdal as well as the need for follow-up Risperdal Consta injections. I have utilized to the "teach back" method to ensure that the patient has understood my instructions. He has no suicidality or homicidality at time of discharge. He does remain a little bit internally stimulated, but there is no luz paranoia or other delusional material. He has no depressive or hypomanic/manic symptoms. He is tolerating psychotropics well without reported side effects and has no physical complaints. Psychiatric follow-up as arranged by counselor. Patient is also to follow up with primary care. I have counseled the patient to abstain from substances of abuse including cannabis and have counseled him to return to the psychiatric emergency room for any concerning symptoms as part of a general safety plan. - Discharge Discharge Date: 09/27/17 - Discharge Diagnosis (1) Schizophrenia Diagnosis: Principal Code(s): F20.9 - Schizophrenia, unspecified Status: Acute (2) Cannabis abuse Diagnosis: Secondary Code(s): F12.10 - Cannabis abuse, uncomplicated Status: Acute Discharge Disposition: Home - Discharge Instructions Discharge Diet: Regular Diet Activities You Can Perform: Weight Bearing As Tolerat - Discharge Time > 30 minutes Mental Status Examination Appearance: Appropriate Consciousness: Alert Orientation: Person, Place (At least) Motor Activity: Normal gait, Other (No hand tremor, no dystonia, no dyskinesia, no other motor abnormalities noted.) Speech: Unremarkable Language: Adequate Fund of Knowledge: Adequate Attention and Concentration: Other (Fair) Memory: Unremarkable Mood: Appropriate Affect: Blunt Thought Process & Associations: Intact Thought Content: Thought blocking (Decreased versus admission) Hallucination Type: Other (Remains mildly internally stimulated) Delusion Type: None Suicidal Ideation: No Suicidal Plan: No Suicidal Intention: No Homicidal Ideation: No Homicidal Plan: No Homicidal Intention: No Insight: Poor Judgment: Poor Discharge/Advance Care Plan - Results Vital Signs: Last Vital Signs Temp 98.4 F 09/27/17 05:21 Pulse 82 09/27/17 05:21 Resp 18 09/27/17 05:21 BP 123/61 09/27/17 05:21 Pulse Ox 98 09/27/17 05:21 Lab Results: Laboratory Results Hemoglobin A1c 5.6 % (4.3-6.0) 09/23/17 07:40 Triglycerides 111 mg/dL (42-150) 09/23/17 07:40 Cholesterol 160 mg/dL (120-200) 09/23/17 07:40 LDL Cholesterol, Calc 93 mg/dL (0-99) 09/23/17 07:40 HDL Cholesterol 45.2 mg/dL (40.0-60.0) 09/23/17 07:40 TSH 1.530 uIU/mL (0.358-3.740) 09/21/17 18:51 Summary of Procedures: None done Pending Results: None - Medications Number of antipsychotic medications at discharge: 1 (Risperdal PO and Consta) - Discharge Care Plan Goals to Promote Your Health: * To prevent worsening of your condition and complications * To maintain your health at the optimal level Directions to Meet Your Goals: Take your medications as prescribed Follow your dietary instruction Follow activity as directed Keep your appointments as scheduled Take your immunizations and boosters as scheduled If your symptoms worsen call your PCP, if no PCP go to Urgent Care Center or Emergency Room For 28/08 questions related to your inpatient stay or results of tests pending at discharge, please contact Dr. Yung Pederson MD at [phone] Smoking is Dangerous to Your Health. Avoid second hand smoking (1) Schizophrenia Qualifiers: Schizophrenia type: disorganized schizophrenia Qualified Code(s): F20.1 - Disorganized schizophrenia (1) Schizophrenia Qualifiers: Schizophrenia type: disorganized schizophrenia Qualified Code(s): F20.1 - Disorganized schizophrenia
[2017-09-27] MEDS ORDERED: risperiDONE Extended Release Inj 25 MG/2 ML Syringe IM SCH (12:00)
== END 2017-09-27 15:08 | disposition home or self-care (01) ==
LOC: NEPJ 18:34 → H270 09-22 16:44 → H260 09-26 18:07
PROVIDERS: ADMIT Psychiatry & Neurology Psychiatry; ATTEND Psychiatry & Neurology Psychiatry

== ENCOUNTER 2018-01-14 19:23 | Inpatient (IN) ==
--- NOTE | 2018-01-14 19:49 | ED ---
HPI General Stated Complaint: Psych/[facility]PD Time Seen by Provider: 01/14/18 19:28 Source: patient and police Mode of arrival: ambulatory Limitations: other (Patient is psychotic and uncooperative) History of Present Illness HPI Narrative: This is a 27-year-old black male schizophrenic who presents emergency department under [place] act by [employer]. Patient's mother had contacted police advising them that she did not feel safe at home. Her son has not been compliant with his medicines. He has been acting unusual. The patient has not been making any sense. Here the patient is refusing to answer questions. He is uncooperative. There is concerned due to the patient's cooperativeness, and his demeanor that he may be a risk/threat to the medical staff. I feel that it is in the patient's best interest in the best interest of the staff to order violent restraints to assist with his compliance. Patient will be medicated with Geodon 20 mg and Ativan 2 mg IM. Related Data Previous Rx's Medication Instructions Recorded risperidone microspheres 25 mg IM Q14D #1 ea 09/27/17 [Risperdal Consta] Allergies Allergy/AdvReac Type Severity Reaction Status Date / Time No Known Allergies Allergy Verified 11/21/17 11:16 Review of Systems ROS Unobtainable ROS Unobtainable: other (Patient is refusing) [facility] Medical History Medical History Bipolar 1 disorder (Acute) Patient denies significant medical history (Acute) Social History Social History Substance History: Active Abuse Second Hand Smoke Exposure: No Smoking Status: Never smoker Tobacco Type: Cigarettes How Often Do You Have a Drink Containing Alcohol: Never Exam Narrative Exam Narrative: GENERAL: This is a well-nourished, well-developed patient, in no apparent distress. SKIN: No rashes, ecchymoses or lesions. Warm and dry. HEAD: Atraumatic. Normocephalic. EYES: PERRL, EOMI, no discharge or injection. No scleral icterus. NOSE: Nasal turbinates appear normal. THROAT: Mucosa pink and moist. Airway patent. NECK: Trachea midline. supple, moves head freely. LUNGS: Clear to auscultation. CV: Regular in rhythm. ABDOMEN: Soft nontender. EXT: No clubbing cyanosis or edema. Psych: Patient is responding to internal stimuli. He is not making any sense. He is uncooperative. He is refusing to answer questions. Medical Decision Making MDM Narrative Medical decision making narrative: Violent restraints have been ordered. Routine laboratory tests sent for analysis. Patient is medicated with Geodon 20 mg IM and Ativan 2 mg IM. The patient has been medically cleared. The patient is awaiting evaluation by psychiatry. Medical Screen Exam Complete: Yes Emergency Medical Condition: Yes Differential Diagnosis Differential Diagnosis: MDM: High Differential diagnoses: Schizophrenia, schizoaffective disorder, bipolar, anxiety, depression, adjustment reaction, mood disorder NOS, ODD, depressive disorder NOS, dementia, dementia with agitation, psychosis NOS, substance induced mood disorder, DMDD, Asperger syndrome, infection,electrolyte abnormality, malingering. Mental health screening discussed with the patient. Psychiatric screen ordered. Lab Data Result diagrams: 01/14/18 19:50 01/14/18 19:50 Lab Results 01/14/18 01/14/18 Range/Units 19:50 19:50 WBC 11.2 H (4.0-11.0) th/mm3 RBC 4.85 (4.50-5.90) mil/mm3 Hgb 14.2 (13.0-17.0) gm/dL Hct 43.9 (39.0-51.0) % MCV 90.4 (80.0-100.0) fL MCH 29.2 (27.0-34.0) pg MCHC 32.3 (32.0-36.0) % RDW 13.1 (11.6-17.2) % Plt Count 215 (150-450) th/mm3 MPV 9.5 (7.0-11.0) fL Neut % (Auto) 59.7 (16.0-70.0) % Lymph % (Auto) 29.4 (9.0-44.0) % [place] % (Auto) 9.0 H (0.0-8.0) % Eos % (Auto) 1.3 (0.0-4.0) % Baso % (Auto) 0.6 (0.0-2.0) % Neut # (Auto) 6.7 (1.8-7.7) th/mm3 Lymph # (Auto) 3.3 (1.0-4.8) th/mm3 [place] # (Auto) 1.0 H (0.0-0.9) th/mm3 Eos # (Auto) 0.1 (0.0-0.4) th/mm3 Baso # (Auto) 0.1 (0.0-0.2) th/mm3 WBC Differential . Differential Comment Auto diff final Sodium 139 (136-145) meq/L Potassium 3.8 (3.5-5.1) meq/L Chloride 105 (98-107) meq/L Carbon Dioxide 28.1 (21.0-32.0) meq/L Anion Gap 6 (5-15) meq/L BUN 13 (7-18) mg/dL Creatinine 1.14 (0.60-1.30) mg/dL Estimated GFR Greater than 89 (>89) mL/min Random Glucose 93 (74-106) mg/dL Calcium 9.1 (8.5-10.1) mg/dL Magnesium 1.9 (1.5-2.5) mg/dL Total Bilirubin 0.3 (0.2-1.0) mg/dL AST 21 (15-37) U/L ALT 31 (12-78) U/L Alkaline Phosphatase 58 (45-117) U/L Total Protein 8.9 H (6.4-8.2) g/dL Albumin 4.6 (3.4-5.0) g/dL TSH 2.190 (0.358-3.740) uIU/mL Serum Alcohol Less than 3 (0-5) mg/dL Discharge Plan Discharge Disposition Patient Disposition: Sign Out(ED Internal Use Only) Discharge Condition Condition: Stable Physicians Team ED Provider: Fabiola Guillermo ED Midlevel Provider: Wero Wright Primary Care Provider: UNKNOWN, Rxs /Orders / Referrals /Forms Prescriptions: No Action risperidone microspheres [Risperdal Consta] 25 mg/2 mL Syringe 25 mg IM Q14D Qty: 1 RF: 0 Status ED Status: Medically Cleared
[2018-01-14 20:21] LABS: Baso # (Auto) 0.1 th/mm3 (0.0-0.2); Baso % (Auto) 0.6 % (0.0-2.0); Eos # (Auto) 0.1 th/mm3 (0.0-0.4); Eos % (Auto) 1.3 % (0.0-4.0); Hematocrit 43.9 % (39.0-51.0); Hemoglobin 14.2 gm/dL (13.0-17.0); Lymph # (Auto) 3.3 th/mm3 (1.0-4.8); Lymph % (Auto) 29.4 % (9.0-44.0); Mean Corpuscular HGB Conc 32.3 % (32.0-36.0); Mean Corpuscular Hemoglobin 29.2 pg (27.0-34.0); Mean Corpuscular Volume 90.4 fL (80.0-100.0); Mean Platelet Volume 9.5 fL (7.0-11.0); Neut # (Auto) 6.7 th/mm3 (1.8-7.7); Neut % (Auto) 59.7 % (16.0-70.0); Platelet Count 215 th/mm3 (150-450); Red Blood Count 4.85 mil/mm3 (4.50-5.90); Red Cell Distribution Width 13.1 % (11.6-17.2); White Blood Count 11.2 th/mm3 (4.0-11.0)
[2018-01-14 20:43] LABS: Albumin 4.6 g/dL (3.4-5.0); Anion Gap 6 meq/L (5-15); Aspartate Aminotransferase 21 U/L (15-37); Blood Urea Nitrogen 13 mg/dL (7-18); Calcium 9.1 mg/dL (8.5-10.1); Carbon Dioxide 28.1 meq/L (21.0-32.0); Chloride 105 meq/L (98-107); Glomerular Filtration Rate Greater Than 89 mL/min (>89); Glucose,Random 93 mg/dL (74-106); Magnesium 1.9 mg/dL (1.5-2.5); Potassium 3.8 meq/L (3.5-5.1); Sodium 139 meq/L (136-145)
[2018-01-14 20:44] LABS: Alanine Aminotransferase 31 U/L (12-78)
[2018-01-14 20:53] LABS: Alkaline Phosphatase 58 U/L (45-117); Total Protein 8.9 g/dL (6.4-8.2)
[2018-01-14 23:14] LABS: Amphetamine Screen,Urine Neg (Neg); Barbiturate Screen,Urine Neg (Neg); Cannabinoid Screen,Urine Pos (Neg); Cocaine Screen,Urine Neg (Neg)
[2018-01-14 23:15] LABS: Opiate Screen,Urine Neg (Neg)
[2018-01-15] MEDS ORDERED: Aluminum/Magnesium/Simethacone Susp 30 ML UDC PO PRN (09:49)
[2018-01-15] MEDS ORDERED: Bisacodyl 10 MG Supp RECTAL PRN (09:49)
--- NOTE | 2018-01-15 14:07 | P.HPPSY ---
Provisional Diagnosis Admission Date: January 15, 2018 09:51 Lee I.: Schizophrenia, cannabis use disorder Competence Certification of Person's Competence To Provide Express and Informed Consent I have personally examined Dannie Baker, a person being served at [facility] on, January 15, 2018 1356. Express and informed consent means consent voluntarily given in writing, by a competent person, after sufficient explanation and disclosure of the subject matter involved to enable the person to make a knowing and willful decision without any element of force, fraud, deceit, duress, or other form of constraint or coercion. This person is 18 years of age or older, is not now known to be incompetent to consent to treatment with a guardian advocate, and does not have a health care surrogate or proxy currently making medical treatment decisions. I have found this person to be one of the following: [] Competent to provide express and informed consent, as defined above, for voluntary admission to this facility and is competent to provide express and informed consent for treatment. He/she has the consistent capacity to make well reasoned, willful, and knowing decisions concerning his or her medical or mental health treatment. The person fully and consistently understands the purpose of the admission for examination/placement and is fully capable of personally exercising all rights assured [place] Incompetent to provide express and informed consent to voluntary admission, and this is incompetent to provide express and informed consent to treatment. The person must be transferred to involuntary status and a petition for a guardian advocate filed with the Circuit Court. [x] Refusing to provide express and informed consent to voluntary admission but is competent to provide express and informed consent for treatment. The person must be discharged or transferred to involuntary status. Form shall be completed within 24 hours of a person's arrival at the receiving facility and filed in the clinical record of each person: 1. Admitted on a voluntary basis 2. Permitted to provide express and informed consent to his/her own treatment 3. Allowed to transfer from involuntary to voluntary status 4. Prior to permitting a person to consent to his or her own treatment after having been previously found incompetent to consent to treatment. History of Present Illness Capacity: Lacks capacity History of Present Illness: The patient is a 27-year-old -Citizen Of The [place] man, domiciled with his mother in [place], single, unemployed, on SSI, with a psychiatric history of schizophrenia , cannabis use disorder, known by the service, previous psychiatric admissions, last hospitalization was in November under the care of Dr. Pederson, documentation review, the patient was discharged on Risperdal Consta 25 mg, with follow-up in [facility], he has no significant medical history, who presents emergency department under [place] act by PD. Patient's mother had contacted police advising them that she did not feel safe at home, has been paranoid, aggressive, not taking his medication. He has been acting unusual. The patient has not been making any sense. Here the patient is refusing to answer questions. He is uncooperative. There is concerned due to the patient's cooperativeness, and his demeanor that he may be a risk/threat to the medical staff. I feel that it is in the patient's best interest in the best interest of the staff to order violent restraints to assist with his compliance. Patient will be medicated with Geodon 20 mg and Ativan 2 mg IM. Chart was reviewed. Case discussed with nursing charge. Patient still quite sedated due to previous as needed medication of Geodon 20 mg and Ativan 2 mg IM due to aggressive behavior in the ER. Patient is able to be awakened. However, seems to be quite sedated, oppositional, resistant to the interview. Patient says that he does not want to be here. He says that he has no reason to be here. He says that he does not have any psychiatric problems. He seems to be quite unpredictable, internally preoccupied and paranoid. At some point during the interview becomes extremely incoherent and disorganized no making any sense. I tried to get collateral information from his mother, Miss Cabral, , but unfortunately she does not corn picker the phone. PPHx: psychiatric history of schizophrenia, cannabis use disorder, known by the service, previous psychiatric admissions, last hospitalization was in November under the care of Dr. Pederson, documentation review, the patient was discharged on Risperdal Consta 25 mg, with follow-up in [facility] PMHx: he has no significant medical history Substance Hx: He uses marijuana almost every day Family Hx: No family psychiatric history document Social Hx: Patient was born and raised in [place], he lives in [place] with his mother, single, no kids, unemployed, supported by SSI, highest level of education is 11th grade - Inpatient Certification I certify that the inpatient services were ordered in accordance with Medicare regulations governing the order. This includes certification that hospital inpatient services are reasonable and necessary and in the case of services not specified as inpatient-only under 42 CFR 419.22(n), that they are appropriately provided as inpatient services in accordance to with the 2-midnight benchmark under 43 CFR 412.3(e) I certify that inpatient psychiatric hospital services are medically necessary. Evaluation and treatment and/or diagnostic testing are expected to improve the patient's condition. The patient needs on a daily basis, active treatment furnished directly by or requiring the supervision of inpatient psychiatric facility personnel. Estimated Total Length of Stay (Days): 7 Plans for Post Hospital Care: Home Review of Systems All other systems reviewed negative except as stated in HPI Psychiatric: Reports irritability, Reports paranoia, Reports other (Agitation, aggressive behavior, disorganized) PMFSH - History History Provided By: Patient - Medical History Medical History: Medical History (Last Reviewed 01/14/18 @ 19:47 by RAMIRO Ortiz) Bipolar 1 disorder Patient denies significant medical history - Tobacco History Second Hand Smoke Exposure: Yes Tobacco Use In Past 30 Days: Yes Smoking Status: Current some day smoker Tobacco Type: Cigarettes, Cigars - Alcohol History How Often Do You Have a Drink Containing Alcohol: Never - Substance Use History Substance History: Active Abuse - Substance Use Type Marijuana Status: Active Route Used: Inhalation Frequency: every other week Last Used: 01/14/18 Reason for Use: Fit In Comment: Refused to answer specifics. - Travel History Recent Travel in the [place] Within the Last 8 Weeks: No Recent Travel Out of the Country Within the Last 8 Weeks: No - Immunization History Tetanus Immunization: Unsure Hx Influenza Vaccine This Season: No Medications and Allergies Active Medications: Active Medications Al Hydrox/Mg Hydrox/Simethicone (Mag-Al Plus Susp Liq) 30 ml PO Q6H PRN PRN Reason: DYSPEPSIA Al Hydroxide/Mg Hydroxide (Milk Of Magnesia Liq) 30 ml PO Q12H PRN PRN Reason: Mild Constipation Bisacodyl (Dulcolax Supp) 10 mg RECTAL DAILY PRN PRN Reason: SEVERE CONSITIPATION Lactulose (Lactulose Liq) 30 ml PO DAILY PRN PRN Reason: SEVERE CONSITIPATION Risperidone (Risperdal) 1 mg PO BID [facility] Senna/Docusate Sodium (Melanie-Colace) 1 tab PO BID [facility] Sennosides (Senokot) 17.2 mg PO Q12H PRN PRN Reason: Moderate Constipation Allergies Allergy/AdvReac Type Severity Reaction Status Date / Time No Known Allergies Allergy Verified 11/21/17 11:16 Results - Labs CBC & Chem 7: 01/14/18 19:50 01/14/18 19:50 Labs: Laboratory Results - last 24 hr 01/14/18 01/14/18 01/14/18 19:50 19:50 19:50 WBC 11.2 H RBC 4.85 Hgb 14.2 Hct 43.9 MCV 90.4 MCH 29.2 MCHC 32.3 RDW 13.1 Plt Count 215 MPV 9.5 Neut % (Auto) 59.7 Lymph % (Auto) 29.4 Snyder % (Auto) 9.0 H Eos % (Auto) 1.3 Baso % (Auto) 0.6 Neut # (Auto) 6.7 Lymph # (Auto) 3.3 Snyder # (Auto) 1.0 H Eos # (Auto) 0.1 Baso # (Auto) 0.1 WBC Differential . Differential Comment Auto diff final Sodium 139 Potassium 3.8 Chloride 105 Carbon Dioxide 28.1 Anion Gap 6 BUN 13 Creatinine 1.14 Estimated GFR Greater than 89 Random Glucose 93 Calcium 9.1 Magnesium 1.9 Total Bilirubin 0.3 AST 21 ALT 31 Alkaline Phosphatase 58 Total Protein 8.9 H Albumin 4.6 TSH 2.190 Urine Opiates Screen Neg Ur Barbiturates Screen Neg Ur Amphetamines Screen Neg U Benzodiazepines Scrn Neg Urine Cocaine Screen Neg U Cannabinoids Screen Pos H Serum Alcohol Less than 3 Exam Vital signs: Vital Signs 01/14/18 23:24 01/15/18 05:23 Temperature 97.4 F L 97.8 F Pulse Rate 135 H 64 Respiratory Rate 20 18 Blood Pressure 168/99 H 130/81 Pulse Oximetry 100 100 Intake & Output 01/14/18 01/15/18 01/15/18 18:59 06:59 18:59 Weight 79.379 kg Narrative: Patient seems to be very sedated, unpredictable, but no tremors, no withdrawal present - Constitutional severe distress - Routine HEENT Exam Head: Present: normocephalic, atraumatic Eye: Present: EOMI ENT: Present: mucous membranes moist Mental Status Examination Appearance: Dirty, Disheveled, Malodorous Consciousness: Alert Orientation: Person, Place, Date/Time Speech: Incoherent Language: Adequate Fund of Knowledge: Adequate Attention and Concentration: Easily distracted, Inadequate Memory: Unremarkable Mood: Angry Affect: Irritable, Labile Thought Process & Associations: Loose associations, Disorganized Thought Content: Bizarre thinking Hallucination Type: None Delusion Type: Paranoid Suicidal Ideation: No Suicidal Plan: No Suicidal Intention: No Homicidal Ideation: No Homicidal Plan: No Homicidal Intention: No Insight: Poor Judgment: Poor Assessment and Plan - Assessment (1) Schizophrenia Code(s): F20.9 - Schizophrenia, unspecified Status: Acute - Plan Plan: Evaluation today the patient presents still under the effect of sedation due to recent chemical restraint with Geodon 20 mg and Ativan 2 mg IM given his aggressive behavior in the ER. However, patient is disorganized, paranoid and internally preoccupied. Described by Larry at an ED staff as very disorganized , no making sense, detached from reality. This is a patient with a psychiatric history of schizophrenia, multiple psychiatric hospitalizations, noncompliant with medications. Recently hospitalized in November. Given his level of psychosis and psychiatric history, the patient has an elevated risk of danger to self and others. Patient will be admitted in psychiatry for stabilization and safety. I will restart Risperdal 1 mg twice daily. Collateral information from and his mother is still needed. Patient will be admitted in 2700 unit. Will consult psychiatry for second opinion. Justification for Continued Inpatient Stay: To be admitted in psychiatry. (1) Schizophrenia Qualifiers:
[2018-01-15] MEDS: Senna/Docusate Sodium 8.6/50 MG Tablet PO SCH (20:31)
[2018-01-16] MEDS: Senna/Docusate Sodium 8.6/50 MG Tablet PO SCH ×2 (08:27→20:45)
[2018-01-16 09:54] LABS: Anion Gap 9 meq/L (5-15); Blood Urea Nitrogen 9 mg/dL (7-18); Calcium 9.4 mg/dL (8.5-10.1); Carbon Dioxide 28.5 meq/L (21.0-32.0); Chloride 103 meq/L (98-107); Glomerular Filtration Rate Greater Than 89 mL/min (>89); Glucose,Random 77 mg/dL (74-106); Potassium 3.7 meq/L (3.5-5.1); Sodium 140 meq/L (136-145)
[2018-01-16 09:55] LABS: Cholesterol 197 mg/dL (120-200)
[2018-01-16 09:58] LABS: Chol/HDL Ratio 4.34 Ratio; HDL Cholesterol 45.3 mg/dL (40.0-60.0); LDL Cholesterol,Calculated 129 mg/dL (0-99); Triglycerides 113 mg/dL (42-150)
--- NOTE | 2018-01-16 10:40 | P.PNPSY ---
Subjective Chief Complaint: [place] act for schizophrenia and danger to others Remarks: Patient seen for follow-up, chart reviewed, patient discussed with nursing staff ; we reviewed the patient's mood, thoughts, and behaviors from overnight and this morning. The patient was admitted by Dr. Malone overnight after being [place] acted by law enforcement officers were called to the home by his mother complained that he was off his psychiatric medications and was a threat to her. The patient was seen today and is reporting that he does not know why his mother felt threatened by him, "she must at a bad day at work or something". He denies active auditory or visual hallucinations. He denies being paranoid and no delusions were elicited. Observations while on the unit overnight so that the patient has been calm and cooperative with care and slept well. The patient admits that he has been diagnosed with schizophrenia in the past but he believes that he does "fine without any medications But I am willing to restart them now if it would make my mother feel better." We discussed risks benefits side effects and alternatives and the patient reports that he does not like getting the long-acting injectables and he would prefer to resume his Risperdal oral tablets. Informed consent paperwork completed but patient had already left for group before he could sign therefore to his left for signatures upon his return. Review of Systems All other systems reviewed negative except as stated in HPI Psychiatric: Denies abnormal sleep pattern, Denies seeing things others do not see, Denies sensing things others do not sense, Denies thoughts of hurting/ killing others, Denies thoughts of hurting/killing yourself Mental Status Examination Appearance: Appropriate, Other (Poor eye contact) Consciousness: Alert Orientation: Person, Place, Date/Time, Situation Speech: Unremarkable Language: Adequate Fund of Knowledge: Adequate Attention and Concentration: Adequate Memory: Unremarkable Mood: Angry Affect: Irritable, Labile Thought Process & Associations: Loose associations, Disorganized Thought Content: Appropriate Hallucination Type: None Delusion Type: None Suicidal Ideation: No Suicidal Plan: No Suicidal Intention: No Homicidal Ideation: No Homicidal Plan: No Homicidal Intention: No Insight: Poor Judgment: Poor Assessment and Plan - Assessment (1) Schizophrenia Code(s): F20.9 - Schizophrenia, unspecified Status: Chronic - Plan Plan: Initial assessment and plan: Evaluation today the patient presents still under the effect of sedation due to recent chemical restraint with Geodon 20 mg and Ativan 2 mg IM given his aggressive behavior in the ER. However, patient is disorganized, paranoid and internally preoccupied. Described by Larry at an ED staff as very disorganized, no making sense, detached from reality. This is a patient with a psychiatric history of schizophrenia, multiple psychiatric hospitalizations, noncompliant with medications. Recently hospitalized in November. Given his level of psychosis and psychiatric history, the patient has an elevated risk of danger to self and others. Patient will be admitted in psychiatry for stabilization and safety. I will restart Risperdal 1 mg twice daily. Collateral information from [facility] and his mother is still needed. Patient will be admitted in 2700 unit. Will consult psychiatry for second opinion. 01/16/2018: Fair response to inpatient stabilization and emergent treatment with antipsychotic in the ED, the patient has been calm and cooperative since arriving on the unit and has not demonstrated any active signs or symptoms of psychosis. The patient expressed insight into the reason for the law enforcement order a [place] act but he has no insight as to why his mother was fearful for his behavior. The patient expressed sincere motivation to restart his antipsychotic with the goal of pleasing his mother and returning home. Continue patient on involuntary status due to his lack of insight and reports of his mother that he has been a risk of harm to her and others and the initial evaluation in the ED was consistent with disorganized thoughts and behaviors. The patient demonstrated appropriate capacity for informed decisions on evaluation this morning. Restart Risperdal 1 mg twice a day for schizophrenia. Discharge planning: Efforts to obtain collateral from patient's mother will continue in anticipation of him returning home within the next 7 days. Justification for Continued Inpatient Stay: Patient remains an elevated risk for self-harm and harm to others and will require further inpatient observation and preparation of a safe discharge plan. Moving patient to a less restrictive environment at this time may result in decompensation. Request Healthcare Surrogate/Guardian Advocate?: No (1) Schizophrenia Qualifiers:
[2018-01-16 17:21] LABS: Hemoglobin A1c 5.5 % (4.3-6.0)
[2018-01-17] MEDS: Senna/Docusate Sodium 8.6/50 MG Tablet PO SCH (08:09)
--- NOTE | 2018-01-17 11:52 | P.PNPSY ---
Subjective Chief Complaint: [place] act for schizophrenia and danger to others Remarks: Patient seen for follow-up, chart reviewed, patient discussed with nursing staff ; we reviewed the patient's mood, thoughts, and behaviors from overnight and this morning. Nursing reports the patient was cooperative with the start of his Risperdal treatment. He was observed in the milieu interacting appropriately with select peers playing cards. He continues to deny suicidal or homicidal ideations. Patient was seen this morning at his bedside where he chose to remain when the rest of the unit was invited to recreation therapy. He has very poor eye contact but he cooperated with questioning. He expressed continued motivation to receive treatment with Risperdal but he is focused on being discharged home as soon as possible. He continues to deny auditory or visual hallucinations. He reports feeling safe on the unit and no delusions were elicited. Review of Systems All other systems reviewed negative except as stated in HPI Mental Status Examination Appearance: Appropriate, Other (Poor eye contact) Consciousness: Alert Orientation: Person, Place, Date/Time, Situation Speech: Unremarkable Language: Adequate Fund of Knowledge: Adequate Attention and Concentration: Adequate Memory: Unremarkable Mood: Anxious Affect: Flat Thought Process & Associations: Intact, Logical, Goal directed Thought Content: Appropriate (But discharge focused) Hallucination Type: None Delusion Type: None Suicidal Ideation: No Suicidal Plan: No Suicidal Intention: No Homicidal Ideation: No Homicidal Plan: No Homicidal Intention: No Insight: Poor Judgment: Poor Assessment and Plan - Assessment (1) Schizophrenia Code(s): F20.9 - Schizophrenia, unspecified Status: Chronic - Plan Plan: Initial assessment and plan: Evaluation today the patient presents still under the effect of sedation due to recent chemical restraint with Geodon 20 mg and Ativan 2 mg IM given his aggressive behavior in the ER. However, patient is disorganized, paranoid and internally preoccupied. Described by Larry at an ED staff as very disorganized, no making sense, detached from reality. This is a patient with a psychiatric history of schizophrenia, multiple psychiatric hospitalizations, noncompliant with medications. Recently hospitalized in November. Given his level of psychosis and psychiatric history, the patient has an elevated risk of danger to self and others. Patient will be admitted in psychiatry for stabilization and safety. I will restart Risperdal 1 mg twice daily. Collateral information from [facility] and his mother is still needed. Patient will be admitted in 2700 unit. Will consult psychiatry for second opinion. 01/16/2018: Fair response to inpatient stabilization and emergent treatment with antipsychotic in the ED, the patient has been calm and cooperative since arriving on the unit and has not demonstrated any active signs or symptoms of psychosis. The patient expressed insight into the reason for the law enforcement order a [place] act but he has no insight as to why his mother was fearful for his behavior. The patient expressed sincere motivation to restart his antipsychotic with the goal of pleasing his mother and returning home. Continue patient on involuntary status due to his lack of insight and reports of his mother that he has been a risk of harm to her and others and the initial evaluation in the ED was consistent with disorganized thoughts and behaviors. The patient demonstrated appropriate capacity for informed decisions on evaluation this morning. Restart Risperdal 1 mg twice a day for schizophrenia. Discharge planning: Efforts to obtain collateral from patient's mother will continue in anticipation of him returning home within the next 7 days. 01/17/2018: Fair response to inpatient stabilization and treatment continues, the patient has tolerated the restart of Risperdal 1 mg twice a day and his behavior has been less bizarre and no evidence of aggression. The patient continues to demonstrate negativistic symptoms of schizophrenia as evidenced by his avoided eye contact and tendency to isolate himself. Patient has a long history of treatment and hospitalization for schizophrenia therefore he will require further observation and treatment to mitigate the risks of harm to self or others as were documented in his [place] act. Continue Risperdal 1 mg twice a day for schizophrenia. Discharge planning: Efforts to obtain collateral from patient's mother will continue in anticipation of him returning home within the next 4-6 days. Justification for Continued Inpatient Stay: Patient remains an elevated risk for harm to others and will require further inpatient stabilization and preparation of a safe discharge plan. Moving patient to a less restrictive environment at this time may result in decompensation. Request Healthcare Surrogate/Guardian Advocate?: No (1) Schizophrenia Qualifiers:
--- NOTE | 2018-01-18 12:14 | P.PNPSY ---
Subjective Chief Complaint: Juarez act for schizophrenia and danger to others Remarks: Patient seen for follow-up, chart reviewed, patient discussed with nursing staff ; we reviewed the patient's mood, thoughts, and behaviors from overnight and this morning. Nursing reports that the patient has been attending some groups and has been spending time in the dayroom watching TV. He remains calm and quiet and seclusive. The patient was seen sitting in the day room and observed to interact appropriately with peers. He continues to deny auditory or visual hallucinations. He continues to deny homicidal or suicidal ideations. We discussed his ongoing treatment with Risperdal and he denies side effects. He expressed a willingness to continue this medication as an outpatient. We discussed the difficulty with getting a hold of his mother and mother not he has access to his home. The patient was able to describe how he could get home and get into the home by a keypad on the garage door. The patient expressed understanding for the need for continued observation and treatment on the unit. Review of Systems All other systems reviewed negative except as stated in HPI Mental Status Examination Appearance: Appropriate, Other (Poor eye contact) Consciousness: Alert Orientation: Person, Place, Date/Time, Situation Speech: Unremarkable Language: Adequate Fund of Knowledge: Adequate Attention and Concentration: Adequate Memory: Unremarkable Mood: Anxious Affect: Flat Thought Process & Associations: Intact, Logical, Goal directed Thought Content: Appropriate (But discharge focused) Hallucination Type: None Delusion Type: None Suicidal Ideation: No Suicidal Plan: No Suicidal Intention: No Homicidal Ideation: No Homicidal Plan: No Homicidal Intention: No Insight: Poor Judgment: Impulsive Assessment and Plan - Assessment (1) Schizophrenia Code(s): F20.9 - Schizophrenia, unspecified Status: Chronic - Plan Plan: Initial assessment and plan: Evaluation today the patient presents still under the effect of sedation due to recent chemical restraint with Geodon 20 mg and Ativan 2 mg IM given his aggressive behavior in the ER. However, patient is disorganized, paranoid and internally preoccupied. Described by Larry at an ED staff as very disorganized, no making sense, detached from reality. This is a patient with a psychiatric history of schizophrenia, multiple psychiatric hospitalizations, noncompliant with medications. Recently hospitalized in November. Given his level of psychosis and psychiatric history, the patient has an elevated risk of danger to self and others. Patient will be admitted in psychiatry for stabilization and safety. I will restart Risperdal 1 mg twice daily. Collateral information from [facility] and his mother is still needed. Patient will be admitted in 2700 unit. Will consult psychiatry for second opinion. 01/16/2018: Fair response to inpatient stabilization and emergent treatment with antipsychotic in the ED, the patient has been calm and cooperative since arriving on the unit and has not demonstrated any active signs or symptoms of psychosis. The patient expressed insight into the reason for the law enforcement order a Juarez act but he has no insight as to why his mother was fearful for his behavior. The patient expressed sincere motivation to restart his antipsychotic with the goal of pleasing his mother and returning home. Continue patient on involuntary status due to his lack of insight and reports of his mother that he has been a risk of harm to her and others and the initial evaluation in the ED was consistent with disorganized thoughts and behaviors. The patient demonstrated appropriate capacity for informed decisions on evaluation this morning. Restart Risperdal 1 mg twice a day for schizophrenia. Discharge planning: Efforts to obtain collateral from patient's mother will continue in anticipation of him returning home within the next 7 days. 01/17/2018: Fair response to inpatient stabilization and treatment continues, the patient has tolerated the restart of Risperdal 1 mg twice a day and his behavior has been less bizarre and no evidence of aggression. The patient continues to demonstrate negativistic symptoms of schizophrenia as evidenced by his avoided eye contact and tendency to isolate himself. Patient has a long history of treatment and hospitalization for schizophrenia therefore he will require further observation and treatment to mitigate the risks of harm to self or others as were documented in his Juarez act. Continue Risperdal 1 mg twice a day for schizophrenia. Discharge planning: Efforts to obtain collateral from patient's mother will continue in anticipation of him returning home within the next 4-6 days. 01/18/2018: The patient remains calm and cooperative with care. There has been no aggressive behaviors or significantly disorganized behaviors since hospital day 1. The patient continues to demonstrate negativistic symptoms of schizophrenia as evidenced by his avoided eye contact and tendency to isolate himself. Patient has a long history of treatment and hospitalization for schizophrenia therefore he will require further observation and treatment to mitigate the risks of harm to self or others as were documented in his Juarez act. Continue Risperdal but change dosing to 2 mg at bedtime in order to promote outpatient compliance. Discharge planning: Efforts to obtain collateral from patient's mother will continue in anticipation of him returning home early next week. Justification for Continued Inpatient Stay: Patient remains an elevated risk for self-harm by self neglect and risk of harm to others per the Juarez act report and will require further inpatient stabilization and preparation of a safe discharge plan. Moving patient to a less restrictive environment at this time may result in decompensation. Request Healthcare Surrogate/Guardian Advocate?: No (1) Schizophrenia Qualifiers:
--- NOTE | 2018-01-19 14:52 | P.PNPSY ---
Subjective Chief Complaint: Juarez act for schizophrenia and danger to others Remarks: Reviewed electronic medical records and discussed case with staff. Follow-up was conducted in his room with TOÑA Vargas present. She reports he has been compliant with his treatment and has had no behavioral disturbances. Patient states that he has been sleeping well and has had a "normal" appetite. He denies any side effects. However throughout the follow-up he has limited eye contact and is somewhat guarded. Mental Status Examination Appearance: Appropriate, Other (Poor eye contact) Consciousness: Alert Orientation: Person, Place, Date/Time, Situation Speech: Unremarkable Language: Adequate Fund of Knowledge: Adequate Attention and Concentration: Adequate Memory: Unremarkable Mood: Anxious Affect: Flat Thought Process & Associations: Intact, Logical, Goal directed Thought Content: Appropriate (But discharge focused) Hallucination Type: None Delusion Type: None Suicidal Ideation: No Suicidal Plan: No Suicidal Intention: No Homicidal Ideation: No Homicidal Plan: No Homicidal Intention: No Insight: Poor Judgment: Impulsive Assessment and Plan - Assessment (1) Schizophrenia Code(s): F20.9 - Schizophrenia, unspecified Status: Chronic - Plan Plan: Patient will be reevaluated by the attending psychiatrist. Continue with current treatment plan. Justification for Continued Inpatient Stay: Moving this patient to a less restrictive environment would likely result in decompensation. Request Healthcare Surrogate/Guardian Advocate?: No (1) Schizophrenia Qualifiers:
--- NOTE | 2018-01-20 11:30 | P.PNPSY ---
Subjective Chief Complaint: Juarez act for schizophrenia and danger to others Remarks: Patient seen and examined with nurseElena in weekend coverage for Dr. Kearns. Chart reviewed. Case discussed with nursing staff. No behavioral issues noted overnight. Interview conducted in day area per patient preference. On my examination today, patient presents as somewhat blunted. He is cooperative with evaluation. Speech is soft but otherwise within normal limits for rate and tone. He denies any suicidal or homicidal ideations. Denies any audiovisual hallucinations. No delusional material elicited. Denies any side effects from medications. No physical complaints. Vital Signs Temp Pulse Resp BP Pulse Ox 01/20/18 06:00 98.6 F 66 17 107/55 L 100 01/19/18 18:14 98.6 F 78 18 131/67 100 Labs reviewed. Review of Systems other (Limited ROS today) Mental Status Examination Appearance: Appropriate Consciousness: Alert Orientation: Person, Place (At least) Motor Activity: Other (No motor abnormalities noted) Speech: Other (Low volume otherwise unremarkable) Language: Adequate Fund of Knowledge: Adequate Attention and Concentration: Adequate Memory: Unremarkable Mood: Other (Calm) Affect: Blunt Thought Process & Associations: Intact, Logical, Goal directed Thought Content: Appropriate Hallucination Type: None Delusion Type: None Suicidal Ideation: No Suicidal Plan: No Suicidal Intention: No Homicidal Ideation: No Homicidal Plan: No Homicidal Intention: No Insight: Poor Judgment: Impulsive Assessment and Plan - Assessment (1) Schizophrenia Code(s): F20.9 - Schizophrenia, unspecified Status: Chronic - Plan Plan: Continue Risperdal 2 mg at bedtime. Continue to monitor on the high acuity unit. Continue other medications and care as ordered. Justification for Continued Inpatient Stay: Risk for decompensation in less restrictive environment. Discharge Planning: Per Dr. Kearns. Request Healthcare Surrogate/Guardian Advocate?: No (1) Schizophrenia Qualifiers:
--- NOTE | 2018-01-21 09:05 | P.DSPSY ---
Psychiatry Discharge Summary Inpatient Psychiatric care?: Yes Advance Directives: No Mental Health Advance Directive: No Health Care Proxy: No - Admission Admission Date: January 15, 2018 09:51 - Admission Diagnosis (1) Schizophrenia Code(s): F20.9 - Schizophrenia, unspecified Brief History: The patient is a 27-year-old -[place] man, domiciled with his mother in [facility], single, unemployed, on SSI, with a psychiatric history of schizophrenia , cannabis use disorder, known by the service, previous psychiatric admissions, last hospitalization was in November under the care of Dr. Pederson, documentation review, the patient was discharged on Risperdal Consta 25 mg, with follow-up in [facility], he has no significant medical history, who presents emergency department under [place] act by PD. Patient's mother had contacted police advising them that she did not feel safe at home, has been paranoid, aggressive, not taking his medication. He has been acting unusual. The patient has not been making any sense. Here the patient is refusing to answer questions. He is uncooperative. There is concerned due to the patient's cooperativeness, and his demeanor that he may be a risk/threat to the medical staff. I feel that it is in the patient's best interest in the best interest of the staff to order violent restraints to assist with his compliance. Patient will be medicated with Geodon 20 mg and Ativan 2 mg IM. Chart was reviewed. Case discussed with nursing charge. Patient still quite sedated due to previous as needed medication of Geodon 20 mg and Ativan 2 mg IM due to aggressive behavior in the ER. Patient is able to be awakened. However, seems to be quite sedated, oppositional, resistant to the interview. Patient says that he does not want to be here. He says that he has no reason to be here. He says that he does not have any psychiatric problems. He seems to be quite unpredictable, internally preoccupied and paranoid. At some point during the interview becomes extremely incoherent and disorganized no making any sense. I tried to get collateral information from his mother, Miss Cabral, , but unfortunately she does not filler picker the phone. PPHx: psychiatric history of schizophrenia, cannabis use disorder, known by the service, previous psychiatric admissions, last hospitalization was in November under the care of Dr. Pederson, documentation review, the patient was discharged on Risperdal Consta 25 mg, with follow-up in [facility] PMHx: he has no significant medical history Substance Hx: He uses marijuana almost every day Family Hx: No family psychiatric history document Social Hx: Patient was born and raised in [place], he lives in [place] with his mother, single, no kids, unemployed, supported by [facility], highest level of education is 11th grade Tobacco Use In Past 30 Days: Yes How Often Do You Have a Drink Containing Alcohol: Never Hospital Course: Initial assessment and plan: Evaluation today the patient presents still under the effect of sedation due to recent chemical restraint with Geodon 20 mg and Ativan 2 mg IM given his aggressive behavior in the ER. However, patient is disorganized, paranoid and internally preoccupied. Described by Larry at an ED staff as very disorganized, no making sense, detached from reality. This is a patient with a psychiatric history of schizophrenia, multiple psychiatric hospitalizations, noncompliant with medications. Recently hospitalized in November. Given his level of psychosis and psychiatric history, the patient has an elevated risk of danger to self and others. Patient will be admitted in psychiatry for stabilization and safety. I will restart Risperdal 1 mg twice daily. Collateral information from [facility] and his mother is still needed. Patient will be admitted in 2700 unit. Will consult psychiatry for second opinion. 01/16/2018: Fair response to inpatient stabilization and emergent treatment with antipsychotic in the ED, the patient has been calm and cooperative since arriving on the unit and has not demonstrated any active signs or symptoms of psychosis. The patient expressed insight into the reason for the law enforcement order a Juarez act but he has no insight as to why his mother was fearful for his behavior. The patient expressed sincere motivation to restart his antipsychotic with the goal of pleasing his mother and returning home. Continue patient on involuntary status due to his lack of insight and reports of his mother that he has been a risk of harm to her and others and the initial evaluation in the ED was consistent with disorganized thoughts and behaviors. The patient demonstrated appropriate capacity for informed decisions on evaluation this morning. Restart Risperdal 1 mg twice a day for schizophrenia. Discharge planning: Efforts to obtain collateral from patient's mother will continue in anticipation of him returning home within the next 7 days. 01/17/2018: Fair response to inpatient stabilization and treatment continues, the patient has tolerated the restart of Risperdal 1 mg twice a day and his behavior has been less bizarre and no evidence of aggression. The patient continues to demonstrate negativistic symptoms of schizophrenia as evidenced by his avoided eye contact and tendency to isolate himself. Patient has a long history of treatment and hospitalization for schizophrenia therefore he will require further observation and treatment to mitigate the risks of harm to self or others as were documented in his Juarez act. Continue Risperdal 1 mg twice a day for schizophrenia. Discharge planning: Efforts to obtain collateral from patient's mother will continue in anticipation of him returning home within the next 4-6 days. 01/18/2018: The patient remains calm and cooperative with care. There has been no aggressive behaviors or significantly disorganized behaviors since hospital day 1. The patient continues to demonstrate negativistic symptoms of schizophrenia as evidenced by his avoided eye contact and tendency to isolate himself. Patient has a long history of treatment and hospitalization for schizophrenia therefore he will require further observation and treatment to mitigate the risks of harm to self or others as were documented in his Juarez act. Continue Risperdal but change dosing to 2 mg at bedtime in order to promote outpatient compliance. Discharge planning: Efforts to obtain collateral from patient's mother will continue in anticipation of him returning home early next week. 01/21/2018: In summary, patient was admitted to a locked, inpatient psychiatric unit. Appropriate precautions were in place throughout patient's hospital stay. Patient was seen and examined on the unit by psychiatry and also visited by counselor. Psychotropic medications were adjusted. There was a good response to treatment and the patient reported improvements in mood, anxiety, and there was no evidence of any suicidality, homicidality or psychosis at time of discharge. Psychiatric follow-up as arranged by counselor. I have counseled the patient to abstain from substances of abuse including cannabis and have counseled patient to return to the psychiatric emergency room for any concerning symptoms as part of a general safety plan. - Discharge Discharge Date: 01/21/18 - Discharge Diagnosis (1) Schizophrenia Code(s): F20.9 - Schizophrenia, unspecified Status: Chronic Discharge Disposition: Home - Discharge Instructions Discharge Diet: Regular Diet Activities You Can Perform: Regular- No Restrictions - Discharge Time > 30 minutes Mental Status Examination Appearance: Appropriate Consciousness: Alert Orientation: x4 Motor Activity: Normal gait Speech: Unremarkable Language: Adequate Fund of Knowledge: Adequate Attention and Concentration: Adequate Memory: Unremarkable Mood: Good Affect: Flat Thought Process & Associations: Intact, Logical, Goal directed Thought Content: Appropriate Hallucination Type: None Delusion Type: None Suicidal Ideation: No Suicidal Plan: No Suicidal Intention: No Homicidal Ideation: No Homicidal Plan: No Homicidal Intention: No Insight: Fair Judgment: Impulsive Discharge/Advance Care Plan - Results Vital Signs: Last Vital Signs Temp 97.6 F 01/21/18 06:00 Pulse 64 01/21/18 06:00 Resp 17 01/21/18 06:00 BP 116/58 L 01/21/18 06:00 Pulse Ox 100 01/21/18 06:00 Lab Results: Laboratory Results Hemoglobin A1c 5.5 % (4.3-6.0) 01/16/18 09:13 Triglycerides 113 mg/dL (42-150) 01/16/18 09:13 Cholesterol 197 mg/dL (120-200) 01/16/18 09:13 LDL Cholesterol, Calc 129 mg/dL (0-99) H 01/16/18 09:13 HDL Cholesterol 45.3 mg/dL (40.0-60.0) 01/16/18 09:13 TSH 2.190 uIU/mL (0.358-3.740) 01/14/18 19:50 Summary of Procedures: None ordered Pending Results: None - Medications Number of antipsychotic medications at discharge: 1 - Discharge Care Plan Goals to Promote Your Health: * To prevent worsening of your condition and complications * To maintain your health at the optimal level Directions to Meet Your Goals: Take your medications as prescribed Follow your dietary instruction Follow activity as directed Keep your appointments as scheduled Take your immunizations and boosters as scheduled If your symptoms worsen call your PCP, if no PCP go to Urgent Care Center or Emergency Room For 28/08 questions related to your inpatient stay or results of tests pending at discharge, please contact Dr. Jacinto Kearns MD at Smoking is Dangerous to Your Health. Avoid second hand smoking (1) Schizophrenia Qualifiers: (1) Schizophrenia Qualifiers:
== END 2018-01-21 11:10 | disposition home or self-care (01) ==
LOC: NEPJ 19:23 → NEDA 01-15 09:51 → H270 01-15 12:09
PROVIDERS: ADMIT Psychiatry & Neurology Psychiatry; ATTEND Psychiatry & Neurology Psychiatry